=== PATIENT | male | born 1960 | race Caucasian/White ===

== ENCOUNTER → 2020-09-01 08:49 | Outpatient (BNVA) | payer OTHER, SELFPAY | PROVIDERS: PCP Internal Medicine; Visit Provider Physician Assistant | DX: Z76.89 Persons encountering health services in other specified circumstances (principal) ==

== ENCOUNTER 2020-10-25 09:51 | Day surgery (SDC) | payer OTHER, SELFPAY ==
[2020-10-19 12:23] VITALS: BMI 30.7
--- NOTE | 2020-10-22 10:07 | P.CONAN_ITS ---
Documented by User: Irma Jimenez 10/22/20 10:08 HPI - Anesthesia Eval Consult details Narrative: 59yo M for Colonoscopy PMFSH Active Problems Active Problems: All Active Problems (Updated 10/19/20 @ 12:23 by Irene Traylor) Encounter for screening colonoscopy (Acute) Dyslipidemia (Acute) Past Medical History Medical History Back pain Dyslipidemia No significant medical problems Family History Family History Mother Blocked artery Father Stroke Heart attack Surgical History Surgical History History of colonoscopy Hx of arthroscopy of left knee Social History Social History Are you a primary critical care physician assistant to a significant other at home: No Do you presently have visiting nurse or other home services: No Alcohol intake: current Alcohol intake frequency: 0-2 drinks per day Alcohol type: wine Smoking Status: Former smoker Smoking Quit Date: 2013 Use of substances other than those prescribed or required for medical reasons: No Have you been hit, kicked, punched, or otherwise hurt by someone within the past year? If so, by whom?: No Advance Directives: No Advance Directives Information Provided: No Advance Directives on File: No Recently lost weight without trying: No Meds Allergies Allergy/AdvReac Type Severity Reaction Status Date / Time No Known Allergies Allergy Verified 10/19/20 12:18 Home Medications Medication Instructions Recorded Confirmed Last Taken Type aspirin 81 mg tablet,delayed 81 mg PO DAILY 09/01/20 10/19/20 Unknown History release atorvastatin 40 mg tablet 40 mg PO DAILY 09/01/20 10/19/20 Unknown History omega-3 fatty acids 1,000 mg 1,000 mg PO DAILY 09/01/20 10/19/20 Unknown History capsule cholecalciferol (vitamin D3) 50 mcg PO DAILY 10/19/20 10/19/20 Unknown History [Vitamin D3] ergocalciferol (vitamin D2) 1 cap PO QWEEK 10/19/20 10/19/20 Unknown History tridlmxe-tgh-mnzai-vit K-lycop 1 tab PO DAILY 10/19/20 10/19/20 Unknown History [Men's Multivitamin] Exam Exam Date and Time: October 22, 2020 1007 Height,Weight and Vital Signs: Height 5 ft 11 in Weight 99.79 kg Assessment and Plan Assessment Anesthesia Assessment: Chart Reviewed Documented by User: Rosalie Flores 10/25/20 10:57 [facility] Past Medical History Medical History Back pain Dyslipidemia No significant medical problems Family History Family History Mother Blocked artery Father Stroke Heart attack Surgical History Surgical History History of colonoscopy Hx of arthroscopy of left knee Social History Social History Are you a primary critical care physician assistant to a significant other at home: No Do you presently have visiting nurse or other home services: No Alcohol intake: current Alcohol intake frequency: 0-2 drinks per day Alcohol type: wine Smoking Status: Former smoker Smoking Quit Date: 2013 Use of substances other than those prescribed or required for medical reasons: No Have you been hit, kicked, punched, or otherwise hurt by someone within the past year? If so, by whom?: No Advance Directives: No Advance Directives Information Provided: No Advance Directives on File: No Recently lost weight without trying: No Meds Allergies Allergy/AdvReac Type Severity Reaction Status Date / Time No Known Allergies Allergy Verified 10/19/20 12:18 Home Medications Medication Instructions Recorded Confirmed Last Taken Type aspirin 81 mg tablet,delayed 81 mg PO DAILY 09/01/20 10/19/20 Unknown History release atorvastatin 40 mg tablet 40 mg PO DAILY 09/01/20 10/19/20 Unknown History omega-3 fatty acids 1,000 mg 1,000 mg PO DAILY 09/01/20 10/19/20 Unknown History capsule cholecalciferol (vitamin D3) 50 mcg PO DAILY 10/19/20 10/19/20 Unknown History [Vitamin D3] ergocalciferol (vitamin D2) 1 cap PO QWEEK 10/19/20 10/19/20 Unknown History xjelucln-ixd-vuuzu-vit K-lycop 1 tab PO DAILY 10/19/20 10/19/20 Unknown History [Men's Multivitamin] Exam Airway Mallampati Class: II TM Dist: >3cm Neck ROM: Full Assessment and Plan Assessment Anesthesia Assessment: Anesthesia Plan Discussed and Chart Reviewed Final Anesthetic Review NPO: Yes ASA Class: II Final Preanesthetic Review: No Changes in Pt Med Stat, Meds/Allgs Chart Reviewed, Consent Obtained/Reviewed and Anes Risks/Benef Reviewed Patient Risk: Low Procedure Risk: Low Assessment/Block/Sedation in SS: Assess/Block/Sedation-SS Anesthetic Plan Anesthetic Plan: MAC: Disposition: Standard PACU
[2020-10-25 10:45] VITALS: BP 139/90; PULSE 79; RESP 16; TEMP 36.7; O2SAT 98
[2020-10-25] MEDS: Lactated Ringers 1,000 ML 100 ML IVCONT (11:04)
--- NOTE | 2020-10-25 11:22 | W.PM.OPN ---
Operative Note Operative Note Date of Service: 10/25/20 Narrative: Pre-op diagnosis: Colon cancer screening, history of colon polyps Post-op diagnosis: other (Colon polyp, diverticulosis, hemorrhoids) Procedure: COLONOSCOPY TILL CECUM WITH BIOPSIES Consent: Indications for the procedure and potential complications of bleeding, perforation, reaction to medications and missed diagnosis were discussed with the patient and informed consent was obtained. Instrument: Olympus PCF H 190 L variable stiffness pediatric colonoscope Monitoring: Vital signs and clinical assessment, intermittent blood pressure monitoring, continuous EKG monitoring, Pulse oximetry and Carbon Dioxide monitoring were done throughout the procedure. Colon withdrawl time was 18 minutes. Procedure: The patient was placed in the left lateral decubitis position and pre-procedure medications were administered. After a digital rectal examination of the ano-rectum, the video colonoscope was inserted into the rectum and advanced through the colon to the cecum. The colonoscope was slowly withdrawn in a retrograde panoramic fashion and the colon mucosa was carefully examined including a retroflexed view of the rectum. Findings and interventions are described below. Procedure Difficulty: LLQ pressure was applied to intubate the cecum Findings: Terminal Ileum: Not evaluated Cecum: Normal Ascending Colon: Normal Transverse Colon: A 3-4 mm diminutive appearing polyp removed with the cold biopsy Descending Colon: Normal Sigmoid Colon: Moderate diverticulosis Rectum: Normal Ano-rectum: Moderate internal hemorrhoids Colon preparation: Good after some irrigation Impression and Post Procedure Diagnosis: Colonoscopy Findings: One diminutive appearing polyp removed Moderate diverticulosis seen in the sigmoid colon Moderate hemorrhoids on retroflexed exam. Plan: Await pathology results Patient will get a letter with with biopsy results. Repeat Colonoscopy interval based on path results - in 5 years if polyps are adenomatous and 10 years if polyps are hyperplastic. Above findings were reviewed with the patient and colon polyps and diverticulosis handouts were given in the discharge area Surgeon: Angélica Blancas MD Anesthesia: MAC (Eden Pierson CRNA) Estimated blood loss (mL): 0 Pathology: other (A. TC polyp x 1) Condition: stable Disposition: PACU
--- NOTE | 2020-10-25 11:22 | MHC.SHP ---
Pre-Procedural Eval Section A The patient is an INPATIENT: No The History & Physical has been completed within 30 days and I have reviewed it.: No Section B Chief Complaint: screening Details of Present Illness: A 59-year-old male referred for screening colonoscopy. Had a colonoscopy 49, with two adenomas polyps. He had a last colonoscopy 5 years ago at that time had no polyps. No family history of colon cancer. He has no GI complaints. He has a good appetite he. He has a normal bowel pattern. Relevant Family History (Specify if Yes): No Relevant Social History: Tobacco Use (past smoker) Present Medications: see Short Stay Collaborative assessment Medical History: Significant History (Hyperlipidemia) History of Previous Operations: Relevant previous surgery/procedure and date(s) (History of Colonoscopy) Allergies: Allergies Allergy/AdvReac Type Severity Reaction Status Date / Time No Known Allergies Allergy Verified 10/19/20 12:18 Review of Systems Sugical H&P ROS: Negative: Constitution, Cardiovascular, Respiratory and Gastrointestinal Exam Surgical H&P Exam: Normal: Heart, Normal: Lungs, Normal: Extremities and Normal: Abdomen Plan Diagnosis/Plan: Unchanged I have reviewed the history and physical and performed a pertinent physical examination on my patient. No changes have occurred unless specified.
[2020-10-25 12:04] VITALS: BP 99/59; PULSE 88; RESP 16; TEMP 36.3; O2SAT 99
[2020-10-25 12:19] VITALS: BP 104/68; PULSE 78; RESP 16; O2SAT 94
[2020-10-25 12:34] VITALS: BP 113/71; PULSE 73; RESP 18; O2SAT 96
== END 2020-10-25 13:04 | disposition home or self-care (01) ==
PROVIDERS: PCP Internal Medicine; Visit Provider Internal Medicine Gastroenterology
PROC: 0DJD8ZZ Inspection of Lower Intestinal Tract, Via Natural or Artificial Opening Endoscopic (ICD-10-PCS; CPT 45378; principal; 2020-10-25 10:50)
DX: Z12.11 Encounter for screening for malignant neoplasm of colon (principal); Z86.010 Personal history of colon polyps; K63.5 Polyp of colon; K57.30 Diverticulosis of large intestine without perforation or abscess without bleeding; K64.8 Other hemorrhoids; Z79.899 Other long term (current) drug therapy; Z79.82 Long term (current) use of aspirin; Z87.891 Personal history of nicotine dependence
CPT/HCPCS: 45380; 88305

== ENCOUNTER → 2020-12-29 13:40 | Outpatient (BNVA) | payer MEDICAID, SELFPAY | PROVIDERS: PCP Internal Medicine; Referring Provider Internal Medicine; Visit Provider Surgery | DX: D17.79 Benign lipomatous neoplasm of other sites (principal) | CPT/HCPCS: 99202 ==

== ENCOUNTER 2021-02-01 05:57 | Day surgery (SDC) | payer MEDICAID, SELFPAY ==
[2021-01-25 11:46] VITALS: BMI 32.2
--- NOTE | 2021-01-31 11:05 | HO.ANESPROP2 ---
Documented by User: Irma Barbara 01/31/21 11:06 HPI - Anesthesia Eval Consult details Narrative: 60yo M for Right Excision of Medial Thigh Lipoma +ETOH daily PMFSH Active Problems Active Problems: All Active Problems (Updated 01/25/21 @ 11:45 by Savita Ty) Encounter for screening colonoscopy (Acute) Lipoma of extremity (Acute) Dyslipidemia (Acute) Past Medical History Medical History Back pain Dyslipidemia Lipoma of extremity Family History Family History Mother Blocked artery Father Stroke Heart attack Surgical History Surgical History History of colonoscopy Hx of arthroscopy of left knee Social History Social History Household Members Other:: alone Are you a primary critical care transport nurse to a significant other at home: No Do you presently have visiting nurse or other home services: No Alcohol intake: current Alcohol intake frequency: 0-2 drinks per day Alcohol type: wine Patient Tobacco Use Status: Former Tobacco user Quit Date: 2013 Tobacco use type: Cigarette Use of substances other than those prescribed or required for medical reasons: No Have you been hit, kicked, punched, or otherwise hurt by someone within the past year? If so, by whom?: No Are you DNR?: No Advance Directives: No Advance Directives Information Provided: No Advance Directives on File: No Recently lost weight without trying: No Eating poorly because of decreased appetite: No Nutrition Risks: No Nutritional Risk Poor oral hygiene: No Meds Allergies Allergy/AdvReac Type Severity Reaction Status Date / Time No Known Allergies Allergy Verified 12/29/20 13:45 Home Medications Medication Instructions Recorded Confirmed Last Taken Type aspirin 81 mg tablet,delayed 81 mg PO DAILY 09/01/20 02/01/21 01/31/21 History release atorvastatin 40 mg tablet 40 mg PO DAILY 09/01/20 01/25/21 Unknown History omega-3 fatty acids 1,000 mg 1,000 mg PO DAILY 09/01/20 01/25/21 Unknown History capsule Men's Multivitamin 1 tab PO DAILY 10/19/20 01/25/21 Unknown History cholecalciferol (vitamin D3) 50 mcg PO DAILY 10/19/20 01/25/21 Unknown History [Vitamin D3] ergocalciferol (vitamin D2) 1 cap PO QWEEK 10/19/20 01/25/21 Unknown History Exam Exam Date and Time: January 31, 2021 1105 Height,Weight and Vital Signs: Height 5 ft 11 in Weight 104.8 kg Assessment and Plan Assessment Anesthesia Assessment: Chart Reviewed Documented by User: Rosalie Flores 02/01/21 07:49 [facility] Past Medical History Medical History Back pain Dyslipidemia Lipoma of extremity Family History Family History Mother Blocked artery Father Stroke Heart attack Surgical History Surgical History History of colonoscopy Hx of arthroscopy of left knee Social History Social History Household Members Other:: alone Are you a primary critical care transport nurse to a significant other at home: No Do you presently have visiting nurse or other home services: No Alcohol intake: current Alcohol intake frequency: 0-2 drinks per day Alcohol type: wine Patient Tobacco Use Status: Former Tobacco user Quit Date: 2013 Tobacco use type: Cigarette Use of substances other than those prescribed or required for medical reasons: No Have you been hit, kicked, punched, or otherwise hurt by someone within the past year? If so, by whom?: No Are you DNR?: No Advance Directives: No Advance Directives Information Provided: No Advance Directives on File: No Recently lost weight without trying: No Eating poorly because of decreased appetite: No Nutrition Risks: No Nutritional Risk Poor oral hygiene: No Meds Allergies Allergy/AdvReac Type Severity Reaction Status Date / Time No Known Allergies Allergy Verified 12/29/20 13:45 Home Medications Medication Instructions Recorded Confirmed Last Taken Type aspirin 81 mg tablet,delayed 81 mg PO DAILY 09/01/20 02/01/21 01/31/21 History release atorvastatin 40 mg tablet 40 mg PO DAILY 09/01/20 01/25/21 Unknown History omega-3 fatty acids 1,000 mg 1,000 mg PO DAILY 09/01/20 01/25/21 Unknown History capsule Men's Multivitamin 1 tab PO DAILY 10/19/20 01/25/21 Unknown History cholecalciferol (vitamin D3) 50 mcg PO DAILY 10/19/20 01/25/21 Unknown History [Vitamin D3] ergocalciferol (vitamin D2) 1 cap PO QWEEK 10/19/20 01/25/21 Unknown History Exam Airway Mallampati Class: II TM Dist: >3cm Neck ROM: Full Assessment and Plan Assessment Anesthesia Assessment: Anesthesia Plan Discussed and Chart Reviewed Final Anesthetic Review NPO: Yes ASA Class: II Final Preanesthetic Review: No Changes in Pt Med Stat, Meds/Allgs Chart Reviewed, Consent Obtained/Reviewed and Anes Risks/Benef Reviewed Patient Risk: Low Procedure Risk: Low Assessment/Block/Sedation in SS: Assess/Block/Sedation-SS Anesthetic Plan Anesthetic Plan: MAC: Disposition: Standard PACU
[2021-02-01 06:05] VITALS: BP 143/98; PULSE 90; RESP 18; TEMP 36.6; O2SAT 98
[2021-02-01] MEDS: Lactated Ringers 1,000 ML 100 ML IVCONT (06:34)
--- NOTE | 2021-02-01 06:45 | PC.NURSE ---
pt shaved half area small kirstie noted to near site surgeron aware
--- NOTE | 2021-02-01 07:14 | MHC.SHP ---
Pre-Procedural Eval Section A Date of Service: 02/01/21 Section B Chief Complaint: Lipoma of extremity Details of Present Illness: has lipomatous mass on right medial thigh with increase in size Relevant Family History (Specify if Yes): No Relevant Social History: None Present Medications: see Short Stay Collaborative assessment Medical History: Significant History (back pain, dyslipidemia) History of Previous Operations: No relevant previous surgery Allergies: Allergies Allergy/AdvReac Type Severity Reaction Status Date / Time No Known Allergies Allergy Verified 12/29/20 13:45 Review of Systems Sugical H&P ROS: Negative: Constitution, Cardiovascular, Respiratory, Neurological, Psychiatric, Hem-Onc, Allergic/Immunologic, Gastrointestinal, Genitourinary, Musculoskeletal, Integumentary, Endocrine and Eyes/Ears/Nose/Throat Exam Surgical H&P Exam: Normal: HEENT, Normal: Heart, Normal: Lungs, Normal: Abdomen, Normal: Skin and Normal: Neurological and Significant Findings: Extremities (lipoma about 5 cm, right medial thigh) Plan Diagnosis/Plan: Unchanged I have reviewed the history and physical and performed a pertinent physical examination on my patient. No changes have occurred unless specified.
--- NOTE | 2021-02-01 07:17 | PM.OP ---
Brief Operative Note Date of Service: 02/01/21 Pre-op diagnosis: lipoma right medial thigh Post-op diagnosis: same Procedure: exc of lipoma right medial thigh Surgeon: Ko Scherer MD Anesthesia: MAC Was an Manager Medical Writing used for this Procedure?: No Estimated blood loss (mL): 2 Pathology: other ( lipoma) Condition: stable Disposition: PACU
--- NOTE | 2021-02-01 08:03 | W.PM.OPN ---
Operative Note Operative Note Date of Service: 02/01/21 Narrative: Preop diagnosis: Lipoma, right medial thigh Postop diagnosis: Lipoma, right medial thigh Procedure: Excision of lipoma, right medial thigh under anesthesia Surgeon: Ko Scherer MD The patient is a 60-year-old male with a lipomatous mass measuring about 5 cm across on the right medial thigh. In view of increasing size, he wanted this removed. He understood the technique of excision under anesthesia. He was aware of the risks, benefits, and alternatives He was brought to the operating room placed supine on the table under monitored anesthesia care. He was placed in frogleg position. The area of the lipoma right medial thigh was prepped and draped in the usual sterile fashion. A surgicaltime-out was done. The patient received cefazolin 2 g IV preoperatively . I infiltrated the planned line of incision with lidocaine 1%. I made an incision on the skin using a blade 15. And this was carried down through the full-thickness of the skin and subcutaneous fat with electrocautery. We proceeded to continue to dissect through the subcutaneous layer until was able to visualize the lipoma. I sharply dissected the left palm off of the rest of the subcutaneous layer all the way posteriorly using electrocautery as well as Metzenbaum scissors. We dissected the lipoma completely until were able to deliver this. This measured about 5 x 5 cm in size. I cauterized some areas of oozing. Once hemostasis was ensured, I proceeded to then irrigate. I closed the incision with full-thickness nylon 3 0 simple interrupted sutures as well as vertical mattress sutures. dressings were applied The patient tolerated the procedure well. There were no complications noted. Initial and final counts of sponges and instruments were correct. Estimated blood loss was about 2 cc. The patient was then transferred to the recovery room with stable vital signs.
[2021-02-01 08:08] VITALS: BP 114/69; PULSE 91; RESP 16; TEMP 36.1; O2SAT 97
[2021-02-01 08:23] VITALS: BP 145/93; PULSE 72; RESP 17; TEMP 36.1; O2SAT 98
== END 2021-02-01 09:07 | disposition home or self-care (01) ==
PROVIDERS: PCP Internal Medicine; Visit Provider Surgery
PROC: (CPT 27337; principal; 2021-02-01 07:30)
DX: D17.23 Benign lipomatous neoplasm of skin and subcutaneous tissue of right leg (principal); E78.5 Hyperlipidemia, unspecified; Z87.891 Personal history of nicotine dependence; Z79.82 Long term (current) use of aspirin; Z79.899 Other long term (current) drug therapy
CPT/HCPCS: 27337; 88304; J0690; J2250; J2405; J3010

== ENCOUNTER → 2021-02-14 14:05 | Outpatient (BNVA) | payer MEDICAID, SELFPAY | PROVIDERS: PCP Internal Medicine; Referring Provider Internal Medicine; Visit Provider Surgery | DX: D17.79 Benign lipomatous neoplasm of other sites (principal); Z48.02 Encounter for removal of sutures | CPT/HCPCS: 99212 ==

== ENCOUNTER → 2022-04-26 12:45 | Outpatient (BNVA) | payer MEDICAID, SELFPAY | PROVIDERS: PCP Internal Medicine; Referring Provider Internal Medicine; Visit Provider Surgery | DX: L98.9 Disorder of the skin and subcutaneous tissue, unspecified (principal) | CPT/HCPCS: 99212 ==

== ENCOUNTER 2022-05-10 14:02 | Outpatient (REF) | payer MEDICAID, SELFPAY | END 2022-05-10 14:03 | disposition home or self-care (01) | LOC: HO.LNP 14:02 | PROVIDERS: PCP Internal Medicine; Visit Provider Surgery | DX: L98.9 Disorder of the skin and subcutaneous tissue, unspecified (principal) | CPT/HCPCS: 11400; 11401; 88304; 88305 ==

== ENCOUNTER 2023-02-19 09:44 | Outpatient (REF) | payer MEDICAID, SELFPAY ==
[2023-02-19 12:26] LABS: Anion Gap 11 (12-20); Blood Urea Nitrogen 10 mg/dL (9-16); Calcium 9.5 mg/dL (8.4-10.2); Carbon Dioxide 28 mmol/L (22-29); Chloride 104 mmol/L (96-108); Cholesterol 197 mg/dL; Estimated Glomerular Filt Rate > 60; Glucose Random 93 mg/dL (60-115); HDL Cholesterol 55 mg/dL; LDL Cholesterol Calculated 97 mg/dl; Potassium 4.4 mmol/L (3.3-5.1); Sodium 139 mmol/L (135-145); Triglycerides 229 mg/dL
== END 2023-02-19 09:45 | disposition home or self-care (01) ==
LOC: HO.HHCL 09:44
PROVIDERS: Visit Provider Internal Medicine
DX: R03.0 Elevated blood-pressure reading, without diagnosis of hypertension (principal)
CPT/HCPCS: 36415; 80048; 80061

== ENCOUNTER 2023-11-12 11:00 | Outpatient (RCR) | payer OTHER, SELFPAY ==
--- NOTE | 2023-12-18 11:33 | MHC.PT.DC ---
[facility] [place] [facility] [place] [facility] [place] Office [address] [phone] F: [phone] F: [phone] F: [phone] F: [phone] Physical Therapy Discharge Report Diagnosis: PIRIFORMIS SYNDROME, RIGHT Date of Surgery: Date of Evaluation: 10/17/23 Date of Discharge: 12/18/23 Treatments to Date: 9 Cancellations to Date: 0 No Shows to Date: 0 Discharge Status: Improved Function Independent with HEP Patient Elected to Stop Discharge Summary: THE Pt WAS CHALLENGED W EXER ACTIVATING HIP ABD/ GLUTES, HE HAS VERY TIGHT AND OVERUSED RADHA HIP FLEXORS.. ?? SOME HIP Jt IRRIT INFLUENCING MOB- THE Pt'S LBP HAS RESOLVED AND SXS ARE PRIMARILY ORIGINATING FROM HIS HIP; HE MET HIS GOALS TO MAX POTENTIAL AND HAS LEFT FOR [place]. Electronically signed by: LILLIANA MCMILLAN,PT Please sign and return to therapist. Thank you for your referral.
== END 2023-12-18 11:41 | disposition home or self-care (01) ==
LOC: HO.PT 11:00
PROVIDERS: PCP Internal Medicine; Visit Provider Internal Medicine
DX: G57.01 Lesion of sciatic nerve, right lower limb (principal)
CPT/HCPCS: 97110; 97112; 97140; 97162; 97535

== ENCOUNTER 2024-03-10 10:02 | Outpatient (REF) | payer OTHER, SELFPAY ==
[2024-03-10 12:10] LABS: Anion Gap 10 (12-20); Blood Urea Nitrogen 13 mg/dL (9-16); Carbon Dioxide 26 mmol/L (22-29); Chloride 107 mmol/L (96-108); Cholesterol 183 mg/dL (<200); Estimated Glomerular Filt Rate > 60; Glucose Random 104 mg/dL (60-115); HDL Cholesterol 55 mg/dL (>40); LDL Cholesterol Calculated 95 mg/dL (<100); Sodium 139 mmol/L (135-145); Triglycerides 165 mg/dL (<150)
[2024-03-10 12:15] LABS: Vitamin D 25-OH Total 43.5 ng/mL (>30)
[2024-03-10 12:31] LABS: Reflex LDLD? No
== END 2024-03-10 10:03 | disposition home or self-care (01) ==
LOC: HO.HHCL 10:02
PROVIDERS: Visit Provider Internal Medicine
DX: I10 Essential (primary) hypertension (principal); E78.2 Mixed hyperlipidemia; G57.01 Lesion of sciatic nerve, right lower limb
CPT/HCPCS: 36415; 80048; 80061; 82306

== ENCOUNTER 2024-04-24 09:56 | Outpatient (AMB) | payer OTHER, SELFPAY ==
--- NOTE | 2024-04-24 09:58 | A.OFFVIS_ITS ---
Vital Signs 04/24/24 10:02 Height 5 ft 11 in Weight 218 lb 4.122 oz BMI 30.4 BP 154/83 H Blood Pressure Location Rt brachial Position Sitting Pulse 83 Pulse Source Pulse Oximeter Pulse Oximetry (%) 98 Oxygen Delivery Method Room Air Intake Visit Reasons: Chronic bilateral low back pain Intake Note: Pain today 2/10 sitting walking 8/10 Technology Architect Required: No Accompanied by: Self / Same As Patient Allergies No Known Allergies Allergy (Verified 04/24/24 10:00) HPI HPI Chronic bilateral low back pain: Details: Patient is a pleasant 63 years old male with past history of osteoarthritis, chronic low back pain, right inguinal hernia, obesity, right piriformis pain, right shoulder pain, history of left plantar fasciitis, osteopenia, presents today for initial evaluation of low back pain and right shoulder pain. Denies any recent or past trauma, injury or falls. Back pain is axial and also radiates to the right buttock and right lateral hip and right groin with localized tenderness to the right sacroiliac joint. Patient reports he wants to avoid surgery for umbilical and right inguinal hernia at this time. 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 Back pain and shoulder pain has been resistant to conservative treatments and affecting his daily activities and functioning, mobility, sleep and social interactions. Denies previous surgery or injections to his current pain generators. Pain is most severe in the mornings, rated at 8/10 and least severe at noon which he rates at 2/10. Denies any fever or chills, abdominal pain, weakness, footdrop, bladder or bowel dysfunction or saddle anesthesia. Location: Lower back, right hip/groin, right shoulder Duration: Right shoulder-6 months, Back/groin pain-1 year Characteristics of symptom or complaint: Aching, stiffness, numbness, shooting, spasming, sharp, radiating Aggravating or associated factors: Climbing, walking, bending, turning to the right, overhead reaches, lifting Relieving factors: Stretching, Tylenol, NSAIDs (Advil, Ibuprofen), Voltaren gel, Biofreeze Treatment: PT 10/24/23-12/18/23, acupunture, massage, inversion table [facility] Medical History Osteoarthritis Hypertension Vitamin D deficiency Benign skin lesion of multiple sites Lipoma of extremity Back pain Dyslipidemia Surgical History History of excision of lesion (~05/10/22) Status post excision of lipoma Hx of arthroscopy of left knee History of colonoscopy Family History Mother Blocked artery Father Stroke Heart attack Social History Household Members Other:: alone Are you a primary healthcare advisory services manager to a significant other at home: No Do you presently have visiting nurse or other home services: No Alcohol intake: current Alcohol intake frequency: 0-2 drinks per day Alcohol type: beer, wine and other Patient Tobacco Use Status: Former Tobacco user Tobacco use type: Cigarette Use of substances other than those prescribed or required for medical reasons: No Review of Systems Const All systems reviewed & are unremarkable except as noted in HPI and below Physical Exam Vital Signs: Last Vital Signs Pulse 83 04/24/24 10:02 BP 154/83 H 04/24/24 10:02 Pulse Ox 98 04/24/24 10:02 Oxygen Delivery Method Room Air 04/24/24 10:02 BMI result Body Mass Index 30.4 General: Appears afebrile. Alert and oriented. Mood and affect appropriate. Follows and participates in conversation appropriately. Respiratory effort is unlabored. No cough. Able to transition from sit to stand unassisted. Ambulates with bilaterally normal heel strike and toe off. GI Inspection: Yes normal to inspection and Yes obesity Palpation (GI): Soft to palpation and Tenderness to palpation present (GI) in the RLQ (right groin) General: Yes no CVA tenderness Back/Spine/Pelvis Other: Limited lumbar ROM due to pain. Mildly antalgic gait with slight limping on the right. Lumbar flexion and bending reproduces moderate symptoms, mild pain with lumbar extension. Demonstrates 5/5 left and 4/5 right strength of quadriceps bilaterally as well as flexion/dorsiflexion of bilateral feet against resistance. 2+ pedal pulses bilaterally. Straight leg rise with dorsiflexion negative bilaterally. Diminished patellar and achilles reflexes bilaterally. Facet loading test positive bilaterally, right>left. Franky sign, Ezequiel?s, Gaenslen, Pelvic compression and Stinchfield tests are positive on the right. Mild groin pain with I/E right hip rotations. Valsalva maneuver negative. Back: no CVA tenderness Cervical Spine: cervical ROM normal, No Cervical spine scars present and No Cervical spine tenderness Thoracic/Lumbar Spine: thoracic and lumbar spine normal to inspection, No Thoracic/lumbar spine scar(s), Lasegue's sign negative, straight leg raise negative bilaterally, pain with thoraco-lumbar ROM, paraspinal muscle tenderness on the right greater than left, thoraco-lumbar ROM limited, No thoracic spinal tenderness and lumbar spinal tenderness at L4 and at L5 Pelvis: buttock tenderness on the right and no sciatic notch tenderness Sacroiliac joints: on the right tender to palpation and on the left nontender Extrem General: Yes capillary refill normal, Yes no clubbing, cyanosis or edema and Yes no calf tenderness Right upper extremity: shoulder/upper arm (Limited ROM with I/E rotations due to pain) Details: normal to inspection and tenderness Location: of the A-C joint and over the subacromial bursa Results Reviewed Results Reviewed: No imaging results are available for review. Assessment & Plan Assessment & Plan (1) Chronic low back pain: Code(s): M54.50 - Low back pain, unspecified; G89.29 - Other chronic pain Category: Medical (2) Lumbosacral spondylosis: Code(s): M47.817 - Spondylosis without myelopathy or radiculopathy, lumbosacral region Category: Medical (3) Right hip pain: Code(s): M25.551 - Pain in right hip Category: Medical (4) Right shoulder pain: Code(s): M25.511 - Pain in right shoulder Category: Medical Plan Lumbar spine, hip and right shoulder imaging to assess degree of degenerative changes, any subluxation, listhesis, compression fractures or pars defects. Discussed interventional treatments for current pain generators including diagnostic versus therapeutic injections neuromodulation and RFA procedures. Continue daily physical activity, good posture, adequate hydration, weight optimization, and activity modifications. All questions and concerns have been answered and patient agreed with the treatment plan. Patient will return to the clinic to discuss results of the xray findings when it is done and consider interventional therapy as indicated. Orders: Orders 2 XR shoulder RT min 2V Today M25.511 - Pain in right shoulder XR lumbar spine 4V min Today G89.29 - Other chronic pain, M47.817 - Spondylosis without myelopathy or radiculopathy, lumbosacral region, M54.50 - Low back pain, unspecified XR hip RT w PEL1V Today M25.551 - Pain in right hip Coding Level of Care Code New Pt Level 4 (80234) Complex EM visit Add On G2211 Diagnoses Chronic low back pain M54.50; G89.29 Lumbosacral spondylosis M47.817 Right hip pain M25.551 Right shoulder pain M25.511
[2024-04-24 10:02] VITALS: BP 154/83; PULSE 83; O2SAT 98; BMI 30.4
== END 2024-04-24 10:29 | disposition home or self-care (01) ==
PROVIDERS: PCP Internal Medicine; Visit Provider Nurse Practitioner Family
DX: M54.50 Low back pain, unspecified (principal); G89.29 Other chronic pain; M47.817 Spondylosis without myelopathy or radiculopathy, lumbosacral region; M25.551 Pain in right hip; M25.511 Pain in right shoulder
CPT/HCPCS: 99204; G2211

== ENCOUNTER 2024-04-24 09:56 | Outpatient (REF) | payer OTHER, SELFPAY ==
--- NOTE | ~2024-04-24 | XR_ITS ---
EXAMINATION: XR LUMBOSACRAL SPINE CLINICAL INFORMATION: M54.50 - Low back pain, unspecified COMPARISON: None available. TECHNIQUE: AP, lateral, lat LS jxn, and both oblique views of the lumbosacral spine. FINDINGS: No fracture, dislocation, or suspicious bone lesion. No compression deformities. Normal bony mineralization. 5 mm degenerative anterolisthesis of L4 on L5. This appears based upon predominantly degenerative facet change. There is a trace degenerative retrolisthesis L3 on L4. Alignment is otherwise anatomic. There is mild to moderate diffuse disc degeneration, most significant at L3-4. There is facet degeneration and sclerosis spanning L4-S1. Oblique views demonstrate no evidence of pars defect. Mild to moderate degenerative arthrosis left greater than right SI joints and bilateral hip joints. No discrete soft tissue abnormalities. XR/XR lumbar spine 4V min IMPRESSION: 1. No acute bony abnormalities. 2. Moderate lumbar spondylosis as discussed. Electronically signed by: Angelito Aguilar MD 07/05/2024 07:45 PM [facility]
--- NOTE | ~2024-04-24 | XR_ITS ---
EXAMINATION: XR SHOULDER, RIGHT CLINICAL INFORMATION: M25.511 - Pain in right shoulder COMPARISON: None available. TECHNIQUE: AP external rotation, Grashey, scapular Y, and axillary views of the right shoulder. FINDINGS: There is normal bony mineralization. No fracture, dislocation, or focal bony abnormality. There are minimal degenerative changes in the glenohumeral joint. There is moderate spurring of predominantly the superior AC joint, with minimal undersurface spurring. The subacromial space is preserved. There is a small amount of calcification of the supraspinatus tendon abutting the cuff insertion on the greater tuberosity. Soft tissues otherwise appear normal. XR/XR shoulder RT min 2V IMPRESSION: 1. No acute bony abnormalities. 2. Mild calcific tendinopathy of the supraspinatus tendon. 3. Mild degenerative changes of the glenohumeral and AC joint. Electronically signed by: Angelito Aguilar MD 07/05/2024 07:34 PM [facility]
--- NOTE | ~2024-04-24 | XR_ITS ---
EXAMINATION: XR HIP, RIGHT CLINICAL INFORMATION: M25.551 - Pain in right hip COMPARISON: None available. TECHNIQUE: Two views of the right hip. FINDINGS: No fracture, dislocation, or suspicious focal bone lesion. At least moderate changes of osteoarthrosis of the right hip joint with subchondral sclerosis and cystic changes in both the femoral head and acetabulum. Moderate to severe joint space loss. Femoral head mildly irregular in contour flattening of the lateral head neck junction. Mild to moderate changes similarly in the left hip joint. Mild to moderate degenerative arthrosis SI joints. No discrete soft tissue abnormalities. XR/XR hip RT w PEL1V IMPRESSION: 1. No acute bony abnormalities identified. 2. At least moderate right and mild to moderate left osteoarthritis of the hip joints. Electronically signed by: Angelito Aguilar MD 07/05/2024 07:38 PM [facility]
== END 2024-04-24 09:57 | disposition home or self-care (01) ==
LOC: HO.XRAY 09:56
PROVIDERS: PCP Internal Medicine; Visit Provider Nurse Practitioner Family
DX: M25.511 Pain in right shoulder (principal); M54.50 Low back pain, unspecified; G89.29 Other chronic pain; M47.817 Spondylosis without myelopathy or radiculopathy, lumbosacral region; M25.551 Pain in right hip
CPT/HCPCS: 72110; 73030; 73502; 99202

== ENCOUNTER → 2024-04-24 10:50 | Outpatient (BNV) | payer OTHER, SELFPAY | PROVIDERS: PCP Internal Medicine; Visit Provider Radiology Diagnostic Radiology | DX: M25.511 Pain in right shoulder (principal); M54.50 Low back pain, unspecified; M25.551 Pain in right hip | CPT/HCPCS: 72110; 73030; 73502 ==

== ENCOUNTER 2024-07-15 13:29 | Outpatient (AMB) | payer OTHER, SELFPAY ==
[2024-07-15 13:30] VITALS: BMI 30.7
--- NOTE | 2024-07-15 13:30 | A.OFFVIS_ITS ---
Vital Signs 07/15/24 13:30 Height 5 ft 11 in Weight 220 lb BMI 30.7 Intake Visit Reasons: xray results Allergies No Known Allergies Allergy (Verified 07/15/24 13:30) HPI Comments Details: Patient presents today via telehealth encounter for follow up to review recent right shoulder, lumbar spine and right hip xray. Patient is currently in [facility] for vacation. He continues to endorse low back pain which extends into his buttocks and lateral hips, right hip pain with radiation into his right groin and thigh and right shoulder pain with activities, lifting or sleeping on right side. Pain is rated at 8/10 with activities and 4-5/10 at rest. Patient is interested to proceed with interventional treatments for right hip and axial low back pain. Denies any recent cough, cold, infection, fever, bladder or bowel dysfunction, saddle anesthesia or other significant changes in medical history since last office visit. PRIOR: Patient is a pleasant 63 years old male with past history of osteoarthritis, chronic low back pain, right inguinal hernia, obesity, right piriformis pain, right shoulder pain, history of left plantar fasciitis, osteopenia, presents today for initial evaluation of low back pain and right shoulder pain. Denies any recent or past trauma, injury or falls. Back pain is axial and also rad iates to the right buttock and right lateral hip and right groin with localized tenderness to the right sacroiliac joint. Patient reports he wants to avoid surgery for umbilical and right inguinal hernia at this time. 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 Back pain and shoulder pain has been resistant to conservative treatments and affecting his daily activities and functioning, mobility, sleep and social interactions. Denies previous surgery or injections to his current pain generators. Pain is most severe in the mornings, rated at 8/10 and least severe at noon which he rates at 2/10. Denies any fever or chills, abdominal pain, weakness, footdrop, bladder or bowel dysfunction or saddle anesthesia. Location: Lower back, right hip/groin, right shoulder Duration: Right shoulder-6 months, Back/groin pain-1 year Characteristics of symptom or complaint: Aching, stiffness, numbness, shooting, spasming, sharp, radiating Aggravating or associated factors: Climbing, walking, bending, turning to the right, overhead reaches, lifting Relieving factors: Stretching, Tylenol, NSAIDs (Advil, Ibuprofen), Voltaren gel, Biofreeze Treatment: PT 10/24/23-12/18/23, acupunture, massage, inversion table PFSH Medical History Osteoarthritis Hypertension Vitamin D deficiency Benign skin lesion of multiple sites Lipoma of extremity Back pain Dyslipidemia Surgical History History of excision of lesion (~05/10/22) Status post excision of lipoma Hx of arthroscopy of left knee History of colonoscopy Family History Mother Blocked artery Father Stroke Heart attack Social History Household Members Other:: alone Are you a primary medication care manager to a significant other at home: No Do you presently have visiting nurse or other home services: No Alcohol intake: current Alcohol intake frequency: 0-2 drinks per day Alcohol type: beer, wine and other Patient Tobacco Use Status: Former Tobacco user Tobacco use type: Cigarette Review of Systems Const All systems reviewed & are unremarkable except as noted in HPI and below ENT Reports Normal hearing present Neuro Reports Normal hearing present and Denies confusion Psych Denies confusion Physical Exam Vital Signs: BMI result Body Mass Index 30.7 Const General: cooperative, alert and awake; No confusion Orientation/consciousness: patient oriented x3 and No confusion Resp Effort & Inspection: able to speak in complete sentences, no audible wheezes and no cough Neuro General: patient oriented x3 and No confusion Cranial nerves: Yes Normal hearing present Cognition (Neuro): normal cognition Psych Mental Status: mental status grossly normal Speech and movement: Clear speech present Affect: normal affect Attitude: cooperative Thought process: Normal thought process present Thought content: Normal thought content present and No Depressive thoughts present Insight: Good insight present (Psych) Judgement: Good judgement present (Psych) Telehealth Telehealth Telehealth Platform: Telephone Location of provider rendering services: practice address Location of patient: address on file Patient Identification confirmed using: Name, : Yes Telehealth method: voice only Patient verbally consented to treatment: Yes Patient verbally consented to billing insurance company: Yes Patient informed of any privacy concerns related to visit: Yes Results Reviewed Results Reviewed: XR SHOULDER, RIGHT 04/24/24 CLINICAL INFORMATION: M25.511 - Pain in right shoulder FINDINGS: There is normal bony mineralization. No fracture, dislocation, or focal bony abnormality. There are minimal degenerative changes in the glenohumeral joint. There is moderate spurring of predominantly the superior AC joint, with minimal undersurface spurring. The subacromial space is preserved. There is a small amount of calcification of the supraspinatus tendon abutting the cuff insertion on the greater tuberosity. Soft tissues otherwise appear normal. IMPRESSION: 1. No acute bony abnormalities. 2. Mild calcific tendinopathy of the supraspinatus tendon. 3. Mild degenerative changes of the glenohumeral and AC joint. XR LUMBOSACRAL SPINE 04/24/24 CLINICAL INFORMATION: M54.50 - Low back pain, unspecified FINDINGS: No fracture, dislocation, or suspicious bone lesion. No compression deformities. Normal bony mineralization. 5 mm degenerative anterolisthesis of L4 on L5. This appears based upon predominantly degenerative facet change. There is a trace degenerative retrolisthesis L3 on L4. Alignment is otherwise anatomic. There is mild to moderate diffuse disc degeneration, most significant at L3-4. There is facet degeneration and sclerosis spanning L4-S1. Oblique views demonstrate no evidence of pars defect. Mild to moderate degenerative arthrosis left greater than right SI joints and bilateral hip joints. No discrete soft tissue abnormalities. IMPRESSION: 1. No acute bony abnormalities. 2. Moderate lumbar spondylosis as discussed. XR HIP, RIGHT 04/24/24 CLINICAL INFORMATION: M25.551 - Pain in right hip FINDINGS: No fracture, dislocation, or suspicious focal bone lesion. At least moderate changes of osteoarthrosis of the right hip joint with subchondral sclerosis and cystic changes in both the femoral head and acetabulum. Moderate to severe joint space loss. Femoral head mildly irregular in contour flattening of the lateral head neck junction. Mild to moderate changes similarly in the left hip joint. Mild to moderate degenerative arthrosis SI joints. No discrete soft tissue abnormalities. IMPRESSION: 1. No acute bony abnormalities identified. 2. At least moderate right and mild to moderate left osteoarthritis of the hip joints. Assessment & Plan Assessment & Plan (1) Chronic low back pain: Code(s): M54.50 - Low back pain, unspecified; G89.29 - Other chronic pain Category: Medical (2) Lumbosacral spondylosis: Code(s): M47.817 - Spondylosis without myelopathy or radiculopathy, lumbosacral region Category: Medical (3) Right hip pain: Code(s): M25.551 - Pain in right hip Category: Medical (4) Right shoulder pain: Code(s): M25.511 - Pain in right shoulder Category: Medical (5) Osteoarthritis of hips, bilateral: Code(s): M16.0 - Bilateral primary osteoarthritis of hip Category: Medical (6) Sacroiliac joint pain: Code(s): M53.3 - Sacrococcygeal disorders, not elsewhere classified Category: Medical (7) Osteoarthritis of right shoulder: Code(s): M19.011 - Primary osteoarthritis, right shoulder Category: Medical Plan Lumbar spine, hip and right shoulder imaging results were discussed with patient today. Reviewed interventional treatments for current pain generators including diagnostic versus therapeutic injections neuromodulation and RFA procedures.Informational pamphlets were mailed to patient. Schedule right hip intra-articular steroid injection with local and fluoroscopy. Expectations, risks and benefits were reviewed. Patient is aware he will be contacted to schedule this procedure. Subsequently plan for Bilateral Diagnostic L3-L4 DR L5 MBB with local and fluoroscopy for axial low back pain. All questions were answered and the patient is in agreement of plan. Follow-up after injections and sooner as needed. I hereby testify that I spent 13 minutes in conversation with this patient as well as with planning and coordinating care for this patient and organizing this note. Coding Level of Care Code Tele Est Pt Level 4 (60533) Complex EM visit Add On G2211 Diagnoses Chronic low back pain M54.50; G89.29 Lumbosacral spondylosis M47.817 Right hip pain M25.551 Right shoulder pain M25.511 Osteoarthritis of hips, bilateral M16.0 Sacroiliac joint pain M53.3 Osteoarthritis of right shoulder M19.011
== END 2024-07-15 13:38 | disposition home or self-care (01) ==
LOC: HO.PMC 13:30
PROVIDERS: PCP Internal Medicine; Visit Provider Nurse Practitioner Family
DX: M54.50 Low back pain, unspecified (principal); G89.29 Other chronic pain; M47.817 Spondylosis without myelopathy or radiculopathy, lumbosacral region; M25.551 Pain in right hip; M25.511 Pain in right shoulder; M16.0 Bilateral primary osteoarthritis of hip; M53.3 Sacrococcygeal disorders, not elsewhere classified; M19.011 Primary osteoarthritis, right shoulder
CPT/HCPCS: 99214; G2211

== ENCOUNTER 2024-07-31 06:25 | Outpatient (REF) | payer OTHER, SELFPAY | END 2024-07-31 06:26 | disposition home or self-care (01) | LOC: CF 06:25 | PROVIDERS: Visit Provider Internal Medicine | DX: M16.0 Bilateral primary osteoarthritis of hip (principal) | CPT/HCPCS: 20611; J2795; J3301 ==

== ENCOUNTER 2024-07-31 09:23 | Outpatient (AMB) | payer OTHER, SELFPAY ==
[2024-07-31 09:26] VITALS: BP 144/84; PULSE 98; O2SAT 99
--- NOTE | 2024-07-31 09:26 | A.OFFVIS_ITS ---
Vital Signs 07/31/24 09:26 07/31/24 09:38 BP 144/84 H 133/71 Blood Pressure Location Lt brachial Lt brachial Position Sitting Sitting Pulse 98 88 Pulse Source Pulse Oximeter Pulse Oximeter Pulse Oximetry (%) 99 98 Oxygen Delivery Method Room Air Room Air Intake Visit Reasons: Right hip inj Allergies No Known Allergies Allergy (Verified 07/15/24 13:30) HPI HPI Right hip inj: Details: Patient presents for scheduled procedure. Denies any recent cough, cold, infection, fever or other significant changes in medical history since last office visit. [facility] Medical History Osteoarthritis Hypertension Vitamin D deficiency Benign skin lesion of multiple sites Lipoma of extremity Back pain Dyslipidemia Surgical History History of excision of lesion (~05/10/22) Status post excision of lipoma Hx of arthroscopy of left knee History of colonoscopy Family History Mother Blocked artery Father Stroke Heart attack Social History Household Members Other:: alone Are you a primary urgent care physician to a significant other at home: No Do you presently have visiting nurse or other home services: No Alcohol intake: current Alcohol intake frequency: 0-2 drinks per day Alcohol type: beer, wine and other Patient Tobacco Use Status: Former Tobacco user Tobacco use type: Cigarette Physical Exam Vital Signs: Last Vital Signs Pulse 88 07/31/24 09:38 BP 133/71 07/31/24 09:38 Pulse Ox 98 07/31/24 09:38 Oxygen Delivery Method Room Air 07/31/24 09:38 Office Procedures AMB Joint Injection/Aspiration Joint Injection/Aspiration Primary Site: other (Right hip) Prep: site was prepped using sterile technique Injected: 40 mg of, Kenalog, with 3 mL of and other (Ropivacaine 0.25%) Approach Used: anterolateral (Ultrasound-guided) Procedure: The patient tolerated the procedure well Coding Details: An image of the ultrasound injection was saved to the patient's record. 15600 - Large joint Procedure code (CPT) selection complete Assessment & Plan Assessment & Plan (1) Osteoarthritis of hips, bilateral: Code(s): M16.0 - Bilateral primary osteoarthritis of hip Category: Medical Plan Patient is status post right ultrasound-guided intra-articular corticosteroid hip injection. Patient tolerated procedure well and was discharged home in stable condition with discharge instructions. All questions were answered. We will follow-up via telephone or in clinic to assess response to therapy. A follow-up appointment was made during today's visit. Coding Level of Care Code Procedure Only Diagnoses Osteoarthritis of hips, bilateral M16.0 CPT Codes Coding - 04403 Large joint: 44201 - Large joint ([id number])
[2024-07-31 09:38] VITALS: BP 133/71; PULSE 88; O2SAT 98
== END 2024-07-31 09:44 | disposition home or self-care (01) ==
PROVIDERS: PCP Internal Medicine; Visit Provider Internal Medicine
DX: M16.0 Bilateral primary osteoarthritis of hip (principal)
CPT/HCPCS: 20611

== ENCOUNTER 2024-08-28 09:14 | Outpatient (AMB) | payer OTHER, SELFPAY ==
--- NOTE | 2024-08-28 09:21 | MHC.OFFVIS ---
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 Henry. Patient reports 80% pain relief in his right lateral hip and thigh since procedure but continues to experience significant pain in right groin especially with getting out of bed or car. Pain is also presents with weight bearing, ROM/flexion and cold weather. SLR testing is negative bilaterally. He does have pain in right sacroiliac joint area but no exacerbation of groin pain with SIJ exam. We will proceed with right hip MRI as next steps. Denies any recent cough, cold, infection, fever, or any significant changes in medical history since last office visit. Past Procedures: 07/31/24: Right intra-articular hip steroid injection with US guidance-80% hip pain relief, still having groin pain PRIOR: Patient presents today via telehealth encounter for follow up to review recent right shoulder, lumbar spine and right hip xray. Patient is currently in [facility] for vacation. He continues to endorse low back pain which extends into his buttocks and lateral hips, right hip pain with radiation into his right groin and thigh and right shoulder pain with activities, lifting or sleeping on right side. Pain is rated at 8/10 with activities and 4-5/10 at rest. Patient is interested to proceed with interventional treatments for right hip and axial low back pain. Denies any recent cough, cold, infection, fever, bladder or bowel dysfunction, saddle anesthesia or other significant changes in medical history since last office visit. PRIOR: Patient is a pleasant 63 years old male with past history of osteoarthritis, chronic low back pain, right inguinal hernia, obesity, right piriformis pain, right shoulder pain, history of left plantar fasciitis, osteopenia, presents today for initial evaluation of low back pain and right shoulder pain. Denies any recent or past trauma, injury or falls. Back pain is axial and also radiates to the right buttock and right lateral hip and right groin with localized tenderness to the right sacroiliac joint. Patient reports he wants to avoid surgery for umbilical and right inguinal hernia at this time. 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 Back pain and shoulder pain has been resistant to conservative treatments and affecting his daily activities and functioning, mobility, sleep and social interactions. Denies previous surgery or injections to his current pain generators. Pain is most severe in the mornings, rated at 8/10 and least severe at noon which he rates at 2/10. Denies any fever or chills, abdominal pain, weakness, footdrop, bladder or bowel dysfunction or saddle anesthesia. Location: Lower back, right hip/groin, right shoulder Duration: Right shoulder-6 months, Back/groin pain-1 year Characteristics of symptom or complaint: Aching, stiffness, numbness, shooting, spasming, sharp, radiating Aggravating or associated factors: Climbing, walking, bending, turning to the right, overhead reaches, lifting Relieving factors: Stretching, Tylenol, NSAIDs (Advil, Ibuprofen), Voltaren gel, Biofreeze Treatment: PT 10/24/23-12/18/23, acupunture, massage, inversion table PFSH Medical History Osteoarthritis Hypertension Vitamin D deficiency Benign skin lesion of multiple sites Lipoma of extremity Back pain Dyslipidemia Surgical History History of excision of lesion (~05/10/22) Status post excision of lipoma Hx of arthroscopy of left knee History of colonoscopy Family History Mother Blocked artery Father Stroke Heart attack Social History Household Members Other:: alone Are you a primary personal care aid to a significant other at home: No Do you presently have visiting nurse or other home services: No Alcohol intake: current Alcohol intake frequency: 0-2 drinks per day Alcohol type: beer, wine and other Patient Tobacco Use Status: Former Tobacco user Tobacco use type: Cigarette Review of Systems Const All systems reviewed & are unremarkable except as noted in HPI and below Physical Exam General: Appears afebrile. Alert and oriented. Mood and affect appropriate. Follows and participates in conversation appropriately. Respiratory effort is unlabored. No cough. Able to transition from sit to stand unassisted. Ambulates with bilaterally normal heel strike and toe off. Back/Spine/Pelvis Other: Limited lumbar ROM due to pain. Mildly antalgic gait with slight limping on the right. Lumbar flexion and bending reproduces mild-moderate symptoms, mild pain with lumbar extension. Demonstrates 5/5 left and 4/5 right strength of quadriceps bilaterally as well as flexion/dorsiflexion of bilateral feet against resistance. 2+ pedal pulses bilaterally. Straight leg rise with dorsiflexion is negative bilaterally. Diminished patellar and achilles reflexes bilaterally. Facet loading test positive bilaterally, right>left. Franky sign, Ezequiel?s, Gaenslen, Pelvic compression and Stinchfield tests are positive on the right. Moderate groin pain with I/E right hip rotations and deep flexion. +FADIR on the right. Valsalva maneuver is negative. Cervical Spine: normal cervical lordosis, cervical ROM normal and No Cervical spine tenderness Thoracic/Lumbar Spine: thoracic and lumbar spine normal to inspection, No Thoracic/lumbar spine scar(s), Lasegue's sign negative, straight leg raise negative bilaterally, pain with thoraco-lumbar ROM, paraspinal muscle tenderness on the right greater than left, thoraco-lumbar ROM limited, No thoracic spinal tenderness and lumbar spinal tenderness at L4 and at L5 Pelvis: buttock tenderness on the right and no sciatic notch tenderness Sacroiliac joints: on the right tender to palpation and on the left nontender Extrem General: Yes capillary refill normal, Yes no clubbing, cyanosis or edema and Yes no calf tenderness Results Reviewed Results Reviewed: XR LUMBOSACRAL SPINE 04/24/24 CLINICAL INFORMATION: M54.50 - Low back pain, unspecified FINDINGS: No fracture, dislocation, or suspicious bone lesion. No compression deformities. Normal bony mineralization. 5 mm degenerative anterolisthesis of L4 on L5. This appears based upon predominantly degenerative facet change. There is a trace degenerative retrolisthesis L3 on L4. Alignment is otherwise anatomic. There is mild to moderate diffuse disc degeneration, most significant at L3-4. There is facet degeneration and sclerosis spanning L4-S1. Oblique views demonstrate no evidence of pars defect. Mild to moderate degenerative arthrosis left greater than right SI joints and bilateral hip joints. No discrete soft tissue abnormalities. IMPRESSION: 1. No acute bony abnormalities. 2. Moderate lumbar spondylosis as discussed. XR HIP, RIGHT 04/24/24 CLINICAL INFORMATION: M25.551 - Pain in right hip FINDINGS: No fracture, dislocation, or suspicious focal bone lesion. At least moderate changes of osteoarthrosis of the right hip joint with subchondral sclerosis and cystic changes in both the femoral head and acetabulum. Moderate to severe joint space loss. Femoral head mildly irregular in contour flattening of the lateral head neck junction. Mild to moderate changes similarly in the left hip joint. Mild to moderate degenerative arthrosis SI joints. No discrete soft tissue abnormalities. IMPRESSION: 1. No acute bony abnormalities identified. 2. At least moderate right and mild to moderate left osteoarthritis of the hip joints. Assessment & Plan Assessment & Plan (1) Right hip pain: Code(s): M25.551 - Pain in right hip Category: Medical (2) Osteoarthritis of hips, bilateral: Code(s): M16.0 - Bilateral primary osteoarthritis of hip Category: Medical (3) Right groin pain: Code(s): R10.31 - Right lower quadrant pain Category: Medical Plan Patient is one month status post right ultrasound-guided intra-articular corticosteroid hip injection with significant pain relief in lateral hip and thigh but continues to experience moderate and occasionally severe right hip pain with ROM, getting out of bed or car, weight bearing and cold weather. We will proceed with right hip MRI to assess labral tear. All questions and concerns have been answered and patient agreed with the treatment plan. Follow up for MRI results and sooner as needed. Orders: Orders MR hip RT w con Today M16.0 - Bilateral primary osteoarthritis of hip, M25.551 - Pain in right hip, R10.31 - Right lower quadrant pain Coding Level of Care Code Est Pt Level 4 (64484) Complex EM visit Add On G2211 Diagnoses Right hip pain M25.551 Osteoarthritis of hips, bilateral M16.0 Right groin pain R10.31
[2024-08-28 09:23] VITALS: BP 152/78; PULSE 82; O2SAT 98; BMI 31.0
== END 2024-08-28 09:32 | disposition home or self-care (01) ==
PROVIDERS: PCP Internal Medicine; Visit Provider Nurse Practitioner Family
DX: M25.551 Pain in right hip (principal); M16.0 Bilateral primary osteoarthritis of hip; R10.31 Right lower quadrant pain
CPT/HCPCS: 99214; G2211

== ENCOUNTER → 2024-08-28 09:16 | Outpatient (BNVA) | payer OTHER, SELFPAY | PROVIDERS: PCP Internal Medicine; Visit Provider Nurse Practitioner Family | DX: M16.0 Bilateral primary osteoarthritis of hip (principal); R10.31 Right lower quadrant pain | CPT/HCPCS: 99212 ==

== ENCOUNTER → 2024-09-22 10:19 | Outpatient (BNV) | payer OTHER, SELFPAY | PROVIDERS: PCP Internal Medicine; Visit Provider Radiology Diagnostic Radiology | DX: M16.11 Unilateral primary osteoarthritis, right hip (principal) | CPT/HCPCS: 73721 ==

== ENCOUNTER 2024-09-22 10:20 | Outpatient (REF) | payer OTHER, SELFPAY ==
--- NOTE | ~2024-09-22 | MR_ITS ---
EXAMINATION: MR HIP WITHOUT CONTRAST, RIGHT CLINICAL INFORMATION: Right hip pain for months. COMPARISON: Correlated to x-ray dated April 24, 2024. TECHNIQUE: MRI of the right hip was obtained using routine sequences on a high-field strength magnet. FINDINGS: There is patchy bone marrow STIR signal within the articular surface of the right acetabulum and to the femoral head. There is marginal osteophyte formation and the superior and inferior aspect of the right acetabulum. There is bone marrow STIR signal abnormality in the anterior: Of the right acetabulum and the posterior superior aspect of the right acetabulum. There is heterogeneous bone marrow STIR signal within the right femoral neck into the intertrochanteric region. No acute cortical disruption within the instability the region of the right femur. There is a small amount of fluid within the right coxofemoral joint. There is joint space narrowing involving the right coxofemoral joint. No signal abnormality within the muscles of the right hip. Nonspecific prominent lymph nodes in the right inguinal region. Normal flow-void signal within the visualized vessels. Heterogeneous nodular enlarged prostate gland. MR/MR hip RT wo con IMPRESSION: Osteoarthrosis, moderate to severe, right coxofemoral joint. Electronically signed by: Richard Hawkins MD 09/23/2024 08:27 AM EST
--- OUTSIDE RECORDS SUMMARY | 2024-09-22 10:25 | XMS_ITS | Encounter Summary ---
Author Organization [employer] Address [address] [place] [address] [address] [place] [address] Care Team Providers Care Quality Review Trainer Name Role Phone Nova Piedra MD Primary Care Provider + Encounter Details Date Type Department Care Team (Latest Contact Info) Description 02/25/2019 Abstract [facility] CONVERSIONS Dental, Provider, DDS Social History Tobacco Use Types Packs/Day Years Used Date Smoking Tobacco: Never Assessed Sex and Gender Information Value Date Recorded Sex Assigned at Male 06/05/2022 10:35 AM EDT Legal Sex Male 10:35 AM EDT Gender Identity Male 06/05/2022 10:35 AM EDT Sexual Orientation Straight 06/05/2022 10 :35 AM EDT documented as of this encounter Plan of Treatment Upcoming Encounters Date Type Department Care Team (Late st Contact Info) Description 09/26/2024 2:00 PM EST Office Visit [facility] ADULT DENTAL [address] [place] [address] Nolberto Ralph 11/25/2024 9:45 AM EDT Office Visit [facility] MEDICINE [address] [place] [address] Nova Piedra MD [address] [place] [address] documented as of this encounter Visit Diagnoses Not on filedocumented in this encounter Care Teams Quality Review Trainer Relationship Specialty Start Date End Date Nova Piedra MD [address] [place] [address] PCP - General Family Medicine 02/05/19 documented as of this encounter
--- OUTSIDE RECORDS SUMMARY | 2024-09-22 10:25 | XMS_ITS | Encounter Summary ---
Author Organization [facility] [employer] Address [address] [place] [address] [address] [address] Care Team Providers Care Truck Rental Manager Name Role Phone Nova Piedra MD Primary Care Provider + Encounter Details Date Type Department Care Team (Latest Contact Info) Description 12/09/2020 Abstract [facility] CONVERSIONS Dental, Provider, DDS Social History [...] Description 09/26/2024 2:00 PM EST Office Visit [facility] CH[facility] ADULT DENTAL [address] [place] [address] Nolberto Ralph 11/25/2024 9:45 AM EDT Office Visit [facility] MEDICINE [address] [place] [address] Nova Piedra MD [address] [place] [address] documented as of this encounter Visit Diagnoses Not on filedocumented in this encounter Care Teams Truck Rental Manager Relationship Specialty Start Date End Date Nova Piedra MD [address] [place] [address] PCP - General Family Medicine 02/05/19 documented as of this encounter
--- OUTSIDE RECORDS SUMMARY | 2024-09-22 10:25 | XMS_ITS | Encounter Summary ---
Author Organization [employer] Address [address] [place] [address] [address] [address] Care Team Providers Care Contact Lens Inspector Name Role Phone Nova Piedra MD Primary Care Provider + Encounter Details Date Type Department Care Team (Late Contact Info) Description 01/18/2023 Abstract [facility] MEDICINE [address] [place] [phone] Nova Piedra MD [address] [place] [phone] Social History Tobacco Use Types Packs/Day Years Used Date Smoking Tobacco: Former Cigarettes 1 45 0 10/23/1968 - 10/23/2013 Passive Smoke Exposure: Never Smokeless Tobacco: Never Alcohol Use Standard Drinks/Week Comments Yes 7 (1 standard drink = 0.6 oz pur e alcohol) Rare Depression Answer Date Recorded Patient Health Questionnaire-2 Score 0 09/21/2022 Sex and Gender Information Value Date Recorded Sex Assigned at Male 06/05/2022 10:35 AM EDT Legal Sex Male 10:35 AM EDT Gender Identity Male 06/05/2022 10:35 AM EDT Sexual Orientation Straight 06/05/2022 10 :35 AM EDT documented as of this encounter Plan of Treatment Upcoming Encounters Date Type Department Care Team (Late Contact Info) Description 09/26/2024 2:00 PM EST Office Visit [facility] ADULT DENTAL [address] [place] [address] Nolberto Ralph 11/25/2024 9:45 AM EDT Office Visit [facility] MEDICINE [address] [place] [phone] Nova Piedra MD [address] [place] [address] documented as of this encounter Procedures Procedure Name Priority Date/Time Associated Diagnosis Comments COLONOSCOPY Routine 10/24/2020 11:34 AM EDT documented in this encounter Results * Colonoscopy (10/24/2020 11:34 AM EDT) Colonoscopy Normal Normal Narrative Keturah Coreas - 10/24/2020 11:34 AM EDT Recommended 5 [place] [facility] [place] Historical [place] [employer] [facility] [place] - Final documented in this encounter Visit Diagnoses Not on filedocumented in this encounter Care Teams Contact Lens Inspector Relationship Specialty Start Date End Date Nova Piedra MD [address] [place] [address] PCP - General Family Medicine 02/05/19 documented as of this encounter
--- OUTSIDE RECORDS SUMMARY | 2024-09-22 10:25 | XMS_ITS | Clinical Summary ---
Author Organization [employer] Address [address] [place] [address] 7t [place] [address] Care Team Providers Care Watch Technician Name Role Phone Nova Anderson MD Primary Care Provider + Allergies No known active allergies Medications acetaminophen (Tylenol 8 Hour) 650 MG ER tablet Take 1 tablet by mouth in the morning and 1 tablet at noon and 1 tablet in the evening. 10/13/19 21 Active aspirin 81 MG chewable tablet Chew 1 tablet at bed time. Active chlorhexidine (Peridex) 0.12 % solution Place 15 mL into mouth between cheek and gum every 12 (twelve) hours. 06/17/20 19 Active Multiple Vitamins-Minerals (Multivitamin) liquid Active omeprazole (PriLOSEC) [address] capsule Take 1 capsule by mouth at bed time. Active rosuvastatin (Crestor) 20 MG tabletIndications:Pure hypercholesterolemia Take 1 tablet (20 mg) by mouth Once per day. 90 tablet 3 08/04/20 24 Active lisinopril 2.5 MG tablet Take 1 tablet (2.5 mg) by mouth Once per day. 90 tablet 3 08/04/20 24 025 Active Active Problems Problem Noted Date Diagnosed Date Right anterior shoulder pain 10/30/2023 Assessment & Plan (03/06/2024 2:14 PM EDT): Not responding to PT in the past. Refer to pain clinic as he's going to be seen for LBP as well. Assessment & Plan (10/30/2023 2:57 PM EDT): - Seems to be chronic (more than a year) We will reevaluate when he comes back from [facility] Umbilical hernia without obstruction and without gangrene 09/17/2023 Assessment & Plan (03/06/2024 2:13 PM EDT): We discussed re rx options including surgical referral. He wants to hold off on surgery at this time. We discussed re warning signs of incarceration, obstruction, he should go to ED or Walk In Center immediately Advised re weight reduction. FU in 1y or earlier prn. Assessment & Plan (02/15/2024 12:04 PM EDT): We discussed re rx options including surgical referral. He wants to hold off on surgery at this time. We discussed re warning signs of incarceration, obstruction, he should go to ED or [facility] immediately Advised re weight reduction. FU in 6mo Pyriformis syndrome, right 09/17/2023 Assessment & Plan (08/04/2024 5:06 PM EST): Improving with steroid injection , didn't fu with PT Advised to do home based stretching exercises Take tylenol prn + recommended acupuncture FU prn Assessment & Plan (02/15/2024 12:07 PM EDT): Refer to PT Take Tylenol prn. Assessment & Plan (10/30/2023 2:58 PM EDT): - Doing better on PT, continue current POC Seasonal allergic rhinitis 02/14/2023 Vitamin D deficiency 02/14/2023 Primary hypertension 02/14/2023 Assessment & Plan (08/04/2024 5:04 PM EST): Controlled. Advised to check BP at home and fu next mo with BP readings. Counseled re low salt diet/increase moderate physical activity. Continue low dose amlodipine Check home BP BIW and prn CP/VILLALOBOS/COLLINS Non smoking patient. Assessment & Plan (02/15/2024 12:02 PM EDT): Borderline controlled. Advised to check BP at home and fu next mo with BP readings. Counseled re low salt diet/increase moderate physical activity. Check home BP BIW and prn CP/VILLALOBOS/COLLINS Non smoking patient. Assessment & Plan (10/30/2023 2:56 PM EDT): - Borderline high. - Start Lisinopril 2.5 mg once daily. Recommended to continue using CPAP Counseled re low salt diet/increase moderate physical activity. Check home BP BIW and prn CP/VILLALOBOS/COLLINS Non smoking patient. F/u with me in 4 months. Assessment & Plan (02/14/2023 9:49 AM EDT): Stage 1, reluctant to start medications Counseled re low salt diet/increase moderate physical activity. Check home BP BIW and prn CP/VILLALOBOS/COLLINS Counseled to use CPAP every night FU in 3 months Ex-smoker 02/14/2023 Assessment & Plan (02/14/2023 9:48 AM EDT): Quit 2013, obtain lung cancer screening results from [facility] Chronic low back pain 02/13/2023 Assessment & Plan (03/06/2024 2:15 PM EDT): Patient had pyriform syndrome sxs recently but most likely has underlying disc disease of spine, not completely improved with PT Advised to come to acupuncture clinic. Advised re weight reduction, routine stretching exercises. Refer to Pain clinic. 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 02/13/2023 Vascular disorder 02/13/2023 Primary osteoarthritis of left knee 02/13/2023 Osteopenia determined by x-ray 02/13/2023 Severe obstructive sleep apnea 10/16/2022 Overview (10/16/2022): ANAMARIA on Sleep study 09/29/22, following / [facility] Sleep Medicine, Auto CPAP 8- 20cm Assessment & Plan (10/30/2023 2:45 PM EDT): Doing well on CPAP, recommedned to use every night to decrease morbidity and mortality and use humidifier Assessment & Plan (02/14/2023 11:42 AM EDT): Doing well on CPAP, recommedned to use every night to decrease morbidity and mortality and use humidifier Hyperlipidemia 09/21/2022 Overview (09/21/2022): per new guidelines, goal at least 30% reduction in LDLLDL goal <130 Assessment & Plan (08/04/2024 5:05 PM EST): LDL is improving. Continue Rosuvastatin 20 mg and recheck lipids in 3 months. We discussed re rx options. She wants to be more strict with life style modifications. Recommended moderate amount of exercise and increased consumption of fruit, vegetables, fish and high fiber foods. We discussed about avoiding consumption of highly saturated fats or trans fats. FU lipids in 12 months Assessment & Plan (08/04/2024 2:44 PM EST): >>ASSESSMENT AND PLAN FOR PURE HYPERCHOLESTEROLEMIA WRITTEN ON 02/14/2023 9:49 AM BY HELADIO LARA On crestor 20mg tolerates well check lipid profile and FU with me in 3 months Assessment & Plan (08/04/2024 2:44 PM EST): >>ASSESSMENT AND PLAN FOR PURE HYPERCHOLESTEROLEMIA WRITTEN ON 02/15/2024 12:06 PM BY NOVA ANDERSON MD Advised to restart Crestor due to hx hyperlipidemia, Fam hx CAD FU lipids and LFTs in 3-4m Assessment & Plan (10/30/2023 2:58 PM EDT): Continue Rosuvastatin 20 mg and recheck lipids in 3 months. LDL goal is 70. We discussed re rx options. She wants to be more strict with life style modifications. Recommended moderate amount of exercise and increased consumption of fruit, vegetables, fish and high fiber foods. We discussed about avoiding consumption of highly saturated fats or trans fats. FU lipids in 4 months Assessment & Plan (09/21/2022 1:54 PM EST): Taking Atorvastatin 20mg only for the past 3 months. Restart atorvastatin 40 mg and recheck lipids in 3 months. We discussed re rx options. She wants to be more strict with life style modifications. Recommended moderate amount of exercise and increased consumption of fruit, vegetables, fish and high fiber foods. We discussed about avoiding consumption of highly saturated fats or trans fats. FU lipids in 6m Obesity 09/21/2022 Polyp of colon 09/21/2022 Habitual snoring 09/21/2022 Assessment & Plan (09/21/2022 1:14 PM EST): See above. Scar irritation 09/21/2022 Assessment & Plan (02/14/2023 9:50 AM EDT): Issue #2 resolved reconsult PRN Assessment & Plan (09/21/2022 1:15 PM EST): On right forearm. Will use Triamciinalone cream x1 month and FU at next appointment. We may decide on biopsy if not healed completely Varicose veins of both lower extremities with pa in 09/21/2022 Assessment & Plan (03/06/2024 2:12 PM EDT): Counseled to lose weight, increase exercise. Prescription for compression stockings. Assessment & Plan (09/21/2022 1:16 PM EST): Counseled to lose weight, increase exercise. Prescription for compression stockings. Resolved Problems Problem Noted Date Diagnosed Date Resolved Date Elevated blood pressure reading 09/21/2022 09/17/2023 Assessment & Plan (09/21/2022 1:53 PM EST): BP is wnl today. Counseled re low salt diet/increase moderate physical activity. Check home BP BIW and prn CP/VILLALOBOS/COLLINS Non smoking patient. Check labs and FU in 2-3 months. Witnessed episode of apnea 09/21/2022 0 02/14/2023 Assessment & Plan (09/21/2022 1:14 PM EST): Will order sleep study Encounters Date Type Department Care Team Description 09/05/2024 Telephone [facility] MEDICINE [address] [place] [phone] Nova Anderson MD November08/15/2024 Telephone [facility] MEDICINE [address] [place] [address] Nova Anderson MD Referral 08/04/2024 2:15 PM EST Office Visit [facility] MEDICINE [address] [place] [address], [place] [address] Nova Anderson MD Primary hypertension (Primary Dx); Mixed hyperlipidemia; Pure hypercholesterolemia; Pyriformis syndrome, right 08/04/2024 Travel 07/29/2024 10:30 AM EST Office Visit [facility] ADULT DENTAL [address] [place] [address] Jamel Chawla DDS 07/29/2024 Telephone [facility] ADULT DENTAL [address] [place] [address], [place] [address] Jamel Chawla DDS emergency dental no insurance 07/24/2024 Patient Outreach [address] [address] Nova Anderson MD Pre-visit Planning ([facility] screening is completed) from Last 3 Months Immunizations Name Administration Dates Next Due Influenza injectable quadriv alent preservative free 05/05/2022,05/05/2021,06/17/2020,2017 Influenza, IIV3, injectable 05/22/2015,1 ,05/18/2013,2010,07/01/2008 Td (adult), unspecified 08/20/2004 Tdap 04/07/2015 Social History Tobacco Use Types Packs/Day Years Used Date Smoking Tobacco: Former Cigarettes 1 45 0 02/13/1979 - 10/23/2013 Passive Smoke Exposure: Past Smokeless Tobacco: Never Tobacco Cessation:Counseling Given: Not Answered Comments:Quit on 2014 Alcohol Use Standard Drinks/Week Comments Yes 14 (1 standard drink = 0.6 oz pu re alcohol) Housing Stability Answer Date Recorded What is your housing situation today? I have jovan elizabeth 10/30/[address] you li ve. Do you have problems with any of the following? None of the above 10/30/2023 Food Insecurity Answer Date Recorded Within the past 12 months, y ou worried that your food would run out before you got money to buy more: Never True 10/30/2023 Within the past 12 months,th e food you bought just didn't last and you didn't have enough money to get more: Never True Transportation Answer Date Recorded In the past 12 months, has l ack of transportation kept you from medical appts, meetings, work or from getting things needed for daily living? No 10/30/2023 Utilities Answer Date Recorded In the past 12 months, has t he electric, gas, oil or water company threatened to shut off services in your home? No 10/30/2023 Depression Answer Date Recorded Patient Health Questionnaire-2 Score 0 10/30/2023 Internet Access Answer Date Recorded Internet Access Q1 Yes 04/07/2024 Internet Access Q2 Not on file 04/07/2024 Sex and Gender Information Value Date Recorded Sex Assigned at Male 06/05/2022 10:35 AM EDT Legal Sex Male 10:35 AM EDT Gender Identity Male 06/05/2022 10:35 AM EDT Sexual Orientation Straight 06/05/2022 10 :35 AM EDT Last Filed Vital Signs Vital Sign Reading Time Taken Comments Blood Pressure 141/79 08/04/2024 2:35 PM EST Pulse 86 08/04/2024 2:35 PM EST Temperature 36.6 ??C (97.8 ??F) 08/04/2024 2:35 PM ES T Respiratory Rate 20 08/04/2024 2:35 PM EST Oxygen Saturation 97% 08/04/2024 2:35 PM EST Inhaled Oxygen Concentration - - Weight 105 kg (232 lb 6 oz) 08/04/2024 2:[address] Height 180.3 cm (5' 11 ) 08/04/2024 2:35 PM EST Body Mass Index 32.41 08/04/2024 2:35 PM EST Plan of Treatment Upcoming Encounters Date Type Department Care Team (Late st Contact Info) Description 09/26/2024 2:00 PM EST Office Visit [facility]C ADULT DENTAL [address] [place] [address] Nolberto Ralph 11/25/2024 9:45 AM EDT Office Visit [facility] MEDICINE [address] [place], [place] [phone] Nova Anderson MD [address] [place] [phone] Health Maintenance Due Date Last Done Comments Anal Pap 1961 CT Colonography 1961 FIT DNA/Cologuard 1961 FIT 1961 FOBT 1961 HIV Screening 1961 Sigmoidoscopy 1961 Alcohol/Substance Use Screening 1973 Hepatitis C Screening 11/14/1979 Hepatitis A Vaccines (1 of 2 - Risk 2-dose series) 1980 Zoster Vaccines (1 of 2) 11/14/2011 Hepatitis B Vaccines (1 of 3 - Risk 3-dose series) 2021 Lung Cancer Screening 03/22/2023 03/22/2022 Dental Oral Exam 09/26/2024 03/25/2024, 03/2024, 10/31/2022 Dental Prophylaxis 09/26/2024 03/25/2024, 0 09/13/2023, 10/31/2022 Depression Screening 10/29/2024 10/30/2023, 10/30/19 SDOH Screening 10/29/2024 10/30/2023 Pneumococcal Vaccine: 50+ Years (2 of 2 - PCV) 11/22/2024 11/23/2023 DTaP/Tdap/Td Vaccines (2 - Td or Tdap) 04/07/2025 04/07/2015, 08/20/2004 Dental X-Ray: Bitewings 07/30/2025 07/29/20 24, 03/25/2024, 10/31/2022 Tobacco Screening 08/04/2025 08/04/2024 Colonoscopy 10/24/2025 10/24/2020 Colorectal Cancer Screening 10/24/2025 Dental X-Ray: Full Mouth 03/26/2027 03/25/2024 Lipid Panel 03/10/2029 03/10/2024, 02/03, 04/07/2022 RSV Patients and Patients Aged 60 years or older (1 - 1-dose 75+ series) 2036 COVID-19 Vaccine Completed 04/13/2024, 11/2021, 02/21/2022, Additional history exists Influenza Vaccine Completed 04/13/2024, , 05/05/2021, Additional history exists HIB Vaccines Aged Out No longer eligi ble based on patient's age to complete this topic HPV Vaccines Aged Out No longer eligi ble based on patient's age to complete this topic IPV Vaccines Aged Out No longer eligi ble based on patient's age to complete this topic Meningococcal Vaccine Aged Out No chon nirali eligible based on patient's age to complete this topic RSV under 20 months Aged Out No longe r eligible based on patient's age to complete this topic Rotavirus Vaccines Aged Out No longer eligible based on patient's age to complete this topic Procedures Procedure Name Priority Date/Time Associated Diagnosis Comments BITEWING - SINGLE RADIOGRAPHIC IMAGE Routine 07/29/2024 10:30 AM EST INTRAORAL - PERIAPICAL EACH ADDITIONAL RADIOGRAPHIC IMAGE Routine 07/29/2024 10:30 AM EST INTRAORAL - PERIAPICAL FIRST RADIOGRAPHIC IMAGE Routine 07/29/2024 10:30 AM EST LIMITED ORAL EVALUATION - PROBLEM FOCUSED Routine 07/29/2024 10:30 AM EST PROPHYLAXIS - ADULT Routine 03/25/2024 8 :00 AM EDT INTRAORAL - COMPLETE SERIES OF RADIOGRAPHIC IMAGES Routine 03/25/2024 8:00 AM EDT PERIODIC ORAL EVALUATION - ESTABLISHED PATIENT Routine 03/25/2024 8:00 AM EDT LIPID PANEL WITH REFLEX TO DIRECT LDL Routine 03/10/2024 10:05 AM EDT Primary hypertension Mixed hyperlipidemia CT LUNG SCREENING FOLLOW UP (LOW DOSE) Routine 03/22/2022 HM COLONOSCOPY Routine 10/24/2020 11:34 AM EDT from Last 3 Months or Most Recently Relevant to Health Maintenance Results * (ABNORMAL) Lipid Panel with Reflex to Direct LDL (03/10/2024 10:05 AM EDT) Triglycerides 165(H) <150 mg/dL [facility] Comment:Desirable Triglyceri de: less than 150 mg/dLBorderline High Triglyceride 150-199 mg/dLHigh Triglyceride: 200-499 mg/dLVery High Triglyceride: greater than or equal to 5OO mg/dL Cholesterol 183 <200 mg/dL [facility] Comment:Desirable Cholestero l: less than 200 mg/dLBorderline High Cholesterol: 200-239 mg/dLHigh Cholesterol: greater than 239 mg/dL LDL Cholesterol Calculated 95 <100 mg/dL [facility] Comment:Desirable LDL: less than 100 mg/dLNear Optimal/Above Optimal LDL: 110- 129 mg/dLBorderline High LDL: 130-159 mg/dLHigh LDL: 160-189 mg/dLVery High LDL: greater than or equal to 190 mg/dL HDL Cholesterol 55 >40 mg/dL [facility] Comment:Desirable HDL: great er than 40 mg/dL Note: This HDL assay may give artificially low results in patients with liver disease. Blood 03/10/2024 10:0 5 AM EDT 03/10/2024 11:16 AM EDT Nova Anderson MD LAB BLOOD ORDERABLES Fin al Result [facility] [address] [place] [phone] * CT LUNG SCREENING FOLLOW UP (LOW DOSE) (03/22/2022) Anatomical Region Laterality Modality Lung Computed Tomogra phy Nova Anderson MD IMG CT PROCEDURES Final Result * Colonoscopy (10/24/2020 11:34 AM EDT) [facility] Signature Colonoscopy Normal Normal Narrative Keturah Coreas - 10/24/2020 11:34 AM EDT Recommended 5 year follow up( [facility]) us Historical Provider HEALTH MAINTENANCE Edited Result - Final from Last 3 Months or Most Recently Relevant to Health Maintenance Insurance [facility] - HSN PARTIAL (MEDICAID) Care Teams Watch Technician Relationship Specialty Start Date End Date Nova Anderson MD [address] [place] [phone] PCP - General Family Medicine 02/05/19
--- OUTSIDE RECORDS SUMMARY | 2024-09-22 10:25 | XMS_ITS | Encounter Summary ---
Author Organization [employer] Address [address] [facility] 7[address] [place] [address] Care Team Providers Care Leather Finisher Name Role Phone Nova Piedra MD Primary Care Provider + Reason for Visit * Reason Onset Date Comments emergency dental no insurance 07/29/2024 Encounter Details Date Type Department Care Team ([facility] st Contact Info) Description 07/29/2024 Telephone [facility] ADULT DENTAL [address] [place], [place] [phone] Jamel Chawla DDS [address] [place] [address] emergency dental no insurance Social History Tobacco Use Types Packs/Day Years Used Date Smoking Tobacco: Former Cigarettes 1 45 0 02/13/1979 - 10/23/2013 Passive Smoke Exposure: Past Smokeless Tobacco: Never Comments:Quit on 2014 Alcohol Use Standard Drinks/Week Comments Not Currently 7 (1 standard drink = 0.6 oz pur e alcohol) Rare Housing Stability Answer Date Recorded What is [...] AM EDT documented as of this encounter Miscellaneous Notes * Telephone Encounter - Kate Mckenna - 07/29/2024 8:19 AM EST Patient is coming in for 10:30am emergency dental appt. Health Safety Net currently inactive. Patient is coming in as of 8:20 to speak with managed care for insurance and/or SFS assistance. documented in this encounter Plan of Treatment Upcoming Encounters Date Type Department Care Team (Late st Contact Info) Description 09/26/2024 2:00 PM EST Office Visit [facility] CHC ADULT DENTAL [address] [place] [address] Nolberto Ralph 11/25/2024 9:45 AM EDT Office Visit [facility] MEDICINE [address] [place] [address] Nova Piedra MD [address] [place] [address] documented as of this encounter Visit Diagnoses Not on filedocumented in this encounter Care Teams Leather Finisher Relationship Specialty Start Date End Date Nova Piedra MD [address] [place] [phone] PCP - General Family Medicine 02/05/19 documented as of this encounter
--- OUTSIDE RECORDS SUMMARY | 2024-09-22 10:25 | XMS_ITS | Encounter Summary ---
Author Organization [employer] Address [address] [facility] 7t [place] [address] Care Team Providers Care Client Relationship Manager Name Role Phone Nova Piedra MD Primary Care Provider + Reason for Visit * Reason Onset Date Comments November09/05/2024 Encounter Details Date Type Department Care Team ([facility] st Contact Info) Description 09/05/2024 Telephone [facility] MEDICINE [address] [place], [place] [phone] Nova Piedra MD [address] [place], [place] [phone] November recall Social History Tobacco Use Types Packs/Day Years [...] encounter Miscellaneous Notes * Telephone Encounter - Susan rBiggs [place] - 09/05/2024 11:37 AM EST Tc to pt to schedule fu htn/pain recall appt. Appt has been scheduled for 11/25/24 at 9:45 am. documented in this encounter Plan of Treatment Upcoming Encounters Date Type Department Care Team (Late st Contact Info) Description 09/26/2024 2:00 PM EST Office Visit [facility] CH[facility] ADULT DENTAL [address] [place] [address] Nolberto Ralph 11/25/2024 9:45 AM EDT Office Visit [facility] MEDICINE [address] [place] [address] Nova Piedra MD [address] [place] [phone] documented as of this encounter Visit Diagnoses Not on filedocumented in this encounter Care Teams Client Relationship Manager Relationship Specialty Start Date End Date Nova Piedra MD [address] [place] [phone] PCP - General Family Medicine 02/05/19 documented as of this encounter
== END 2024-09-22 10:21 | disposition home or self-care (01) ==
LOC: HO.MRI 10:20
PROVIDERS: PCP Internal Medicine; Visit Provider Nurse Practitioner Family
DX: M16.0 Bilateral primary osteoarthritis of hip (principal); R10.31 Right lower quadrant pain; M25.551 Pain in right hip
CPT/HCPCS: 73721

== ENCOUNTER 2024-10-27 14:22 | Outpatient (AMB) | payer OTHER, SELFPAY ==
--- NOTE | 2024-10-27 14:24 | A.OFFVIS_ITS ---
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 Hx of right intra-articular hip steroid injection w/ US guidance on 07/31/[address] Henry with 80% of relief. Patient states ongoing pain for many years/a couple months. He states that his right hip is worse than his left hip. His pain is more focused on the glutes and it moves to his groin. Patient finds that his pain is worse when he is walking and laying on his side. IMPRESSION (MRI was done on 09/22/24): Osteoarthrosis, moderate to severe, right coxofemoral joint. 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 Rome lopez is a 63-year-old male who presents to the office today for right hip pain. He is formally a patient of pain management in which he received an intra-articular cortisone injection in July of this year into the right hip. Reports that he had good relief with the injection but it is beginning to wear off and he is continuing to have right groin pain. FORMERLY [facility], [facility] Medical History Osteoarthritis Hypertension Vitamin D deficiency Benign skin lesion of multiple sites Lipoma of extremity Back pain Dyslipidemia Surgical History History of excision of lesion (~05/10/22) Status post excision of lipoma Hx of arthroscopy of left knee History of colonoscopy Family History Mother Blocked artery Father Stroke Heart attack Social History (Updated 10/27/24 @ 14:27 by Wood Pride) Household Members Other:: alone Are you a primary health and social care teacher to a significant other at home: No Do you presently have visiting nurse or other home services: No Alcohol intake: current Alcohol intake frequency: 0-2 drinks per day Alcohol type: beer, wine and other Patient Tobacco Use Status: Former Tobacco user Tobacco use type: Cigarette Current occupational status: retired Review of Systems Const All systems reviewed & are unremarkable except as noted in HPI and below Physical Exam Vital Signs: BMI result Body Mass Index 31.0 Const General: cooperative, healthy appearing and no acute distress Resp Effort & Inspection: normal respiratory effort and able to speak in complete sentences Cardio Rate: regular rate Peripheral pulses: Peripheral pulses 2+ throughout Skin Lesions: no lesions Rashes: no rashes Extrem Other: Right hip: Limited range of motion with internal external rotation. No tenderness to palpation over the greater trochanteric bursa. Positive impingement. Able to perform straight leg raise. NVI. Assessment & Plan Assessment & Plan (1) Osteoarthritis of right hip: Code(s): M16.11 - Unilateral primary osteoarthritis, right hip Category: Medical Plan Mr. Rome lopez is a 63-year-old male who presents to the office today for right hip pain. He is formally a patient of pain management in which he received an intra-articular cortisone injection in July of this year into the right hip. Reports that he had good relief with the injection but it is beginning to wear off and he is continuing to have right groin pain. Dr. Lovelace was available to see the patient with me in the office today. Recommendation is for right total hip arthroplasty. At this time the patient would like to hold off and think about this and how he would like to proceed. The injection did offer him some relief in July however the pain is beginning to return. He may repeat cortisone injection with pain management if he wishes to do so. I provided him with my business card as well as Dr. Lovelace's and should he wish to move forward with surgery will reach out to our office and we will forward him to Ana to begin the process. X-rays of the right hip which were obtained on 04/24/2024 were reviewed by me, Jimena Cooper PA-C, revealed pistol deformity and significant osteoarthritis. Coding Level of Care Code New Pt Level 4 (30850) Diagnoses Osteoarthritis of right hip M16.11
[2024-10-27 14:27] VITALS: BMI 31.0
== END 2024-10-27 14:45 | disposition home or self-care (01) ==
LOC: HO.HOS 14:22
PROVIDERS: PCP Internal Medicine; Visit Provider Physician Assistant
DX: M16.11 Unilateral primary osteoarthritis, right hip (principal)
CPT/HCPCS: 99203

== ENCOUNTER → 2024-10-27 14:22 | Outpatient (BNVA) | payer OTHER, SELFPAY | PROVIDERS: PCP Internal Medicine; Visit Provider Physician Assistant | DX: M16.11 Unilateral primary osteoarthritis, right hip (principal); M25.552 Pain in left hip | CPT/HCPCS: 99202 ==

== ENCOUNTER 2024-12-17 11:02 | Outpatient (AMB) | payer OTHER, SELFPAY ==
--- NOTE | 2024-12-17 11:08 | MHC.OFFVIS ---
Vital Signs 12/17/24 11:15 Height 5 ft 11 in Weight 228 lb BMI 31.8 BP 139/76 Blood Pressure Location Rt brachial Position Sitting Pulse 79 Intake Visit Reasons: umbilical Hernia Intake Note: Patient referred by pcp Dr. Piedra for Umbilical hernia. Present for 2yrs. Patient c/o: denies pain. Irritated bulge that sticks out after bending. Distribution Superintendent Required: No Accompanied by: Self / Same As Patient Allergies No Known Allergies Allergy (Verified 10/27/24 14:26) Medication List - Last Reconciled 12/17/24 by Ko Scherer MD acetaminophen 650 mg PO Q6H PRN chlorhexidine gluconate 0.12% (Peridex) 15 mL buccal BID cholecalciferol (vitamin D3) (Vitamin D3) 50 mcg PO DAILY lisinopril 2.5 mg PO DAILY fvkedqqm-igo-ozsne-vit K-lycop 400-20-300 mcg (Men's Multivitamin) 1 tab PO DAILY omega-3 fatty acids (Fish Oil Concentrate) 1,000 mg PO DAILY rosuvastatin 20 mg PO DAILY HPI HPI umbilical Hernia: Details: 64-year-old male referred for an umbilical hernia. He has noticed this reducible mass on his umbilicus for about 2 years now. He says that this seemed to be increasing in size. Furthermore, he describes worsening discomfort. He denies GI complaints. [facility] Medical History (Updated 12/17/24 @ 11:25 by Ko Scherer MD) Reducible umbilical hernia Osteoarthritis Hypertension Vitamin D deficiency Benign skin lesion of multiple sites Lipoma of extremity Back pain Dyslipidemia Surgical History History of excision of lesion (~05/10/22) Status post excision of lipoma Hx of arthroscopy of left knee History of colonoscopy Family History Mother Blocked artery Father Stroke Heart attack Social History Household Members Other:: alone Are you a primary resident care director to a significant other at home: No Do you presently have visiting nurse or other home services: No Alcohol intake: current Alcohol intake frequency: 0-2 drinks per day Alcohol type: beer, wine and other Patient Tobacco Use Status: Former Tobacco user Tobacco use type: Cigarette Current occupational status: retired Review of Systems Const Denies chills and Denies fever(s) Card Denies chest pain, Denies dyspnea and Denies dyspnea on exertion Resp Denies cough, Denies dyspnea and Denies dyspnea on exertion GI Denies hematochezia and Denies change in bowel habits Denies hematuria and Denies difficulty urinating Musc Details: Right hip pain Denies back pain and Denies limited range of motion Neuro Denies focal weakness and Denies convulsions Psych Denies depression and Denies mood swings Physical Exam Vital Signs: Last Vital Signs Pulse 79 12/17/24 11:15 BP 139/76 12/17/24 11:15 BMI result Body Mass Index 31.8 Const General: comfortable and no acute distress Nutritional Appearance: overweight Orientation/consciousness: patient oriented x3 Neck Neck: Yes no lymphadenopathy Resp Auscultation: clear to auscultation bilaterally Cardio Rhythm: regular rhythm GI Other: He has a protuberant abdomen, there is note of a reducible umbilical hernia about 2.5 cm in diameter, nontender currently Palpation (GI): Soft to palpation, nontender and no guarding Neuro General: patient oriented x3 Assessment & Plan Assessment & Plan (1) Reducible umbilical hernia: Code(s): K42.9 - Umbilical hernia without obstruction or gangrene Category: Medical Plan: He has a reducible umbilical hernia was worsening size and discomfort. He wants this repaired. I explained to him the technique of repair with possible mesh placement. I reviewed the risks including but not limited to bleeding, infections, bowel injury, recurrence, as well as the benefits and alternatives. He understands and wants to proceed. I also explained to him what to expect postoperatively. Coding Level of Care Code New Pt Level 3 (84266) Diagnoses Reducible umbilical hernia K42.9
[2024-12-17 11:15] VITALS: BP 139/76; PULSE 79; BMI 31.8
--- OUTSIDE RECORDS SUMMARY | 2024-12-17 12:06 | XMS_ITS | Clinical Summary ---
Author Organization [employer] Address [address] [place] [address] Care Team Providers Care Stoker Mechanic Name Role Phone Nova Anderson MD Primary Care Provider + Allergies No known active allergies Medications acetaminophen (Tylenol 8 Hour) 650 MG ER tablet Take 1 tablet by mouth in the morning and 1 tablet at noon and 1 tablet in the evening. 021 Active aspirin 81 MG chewable tablet Chew 1 tablet at bed time. Active chlorhexidine (Peridex) 0.12 % solution Place 15 mL into mouth between cheek and gum every 12 (twelve) hours. 019 Active Multiple Vitamins-Minerals (Multivitamin) liquid Active omeprazole (PriLOSEC) [address] capsule Take 1 capsule by mouth at bed time. Active rosuvastatin (Crestor) 20 MG tabletIndications:Pure hypercholesterolemia Take 1 tablet (20 mg) by mouth Once per day. 90 tablet 3 024 Active lisinopril 2.5 MG tablet TAKE ONE TABLET EVERY MORNING 90 tablet 1 025 Active phenylephrine-shark liver oil-mineral oil-petrolatum (Preparation H) 0.25-3-14-71.9 % rectal ointment Insert into the rectum if needed in the morning and at bedtime for hemorrhoids for up to 10 days. 30 g 025 2024 Active Problems Problem Noted Date Diagnosed Date Primary osteoarthritis of right hip 11/25/2024 Assessment & Plan (11/25/2024 7:40 PM EDT): Failed PT and intra-articular steroids Continue to take Tylenol as needed, recommended weight reduction Follow-up with orthopedics as needed, he has not decided on hip replacement surgery yet. Pigmented skin lesions 11/25/2024 Assessment & Plan (11/25/2024 7:41 PM EDT): On his back, they're probably Aktinic keratoses Will refer to dermatology at his request. Rectal bleeding 11/25/2024 Grade I hemorrhoids 11/25/2024 Assessment & Plan (11/25/2024 7:39 PM EDT): Recommended to constipation, increase water and fiber intake Use Preparation H or hydrocortisone rectal cream as needed rectal bleeding and reconsult if symptoms do not resolve after 1 week. Colonoscopy is due in 2025 Right anterior shoulder pain 10/30/2023 Assessment & Plan (03/06/2024 2:14 PM EDT): Not responding to PT in the past. Refer to pain clinic as he's going to be seen for LBP as well. Assessment & Plan (10/30/2023 2:57 PM EDT): - Seems to be chronic (more than a year) We will reevaluate when he comes back from [facility] Umbilical hernia without obstruction and without gangrene 09/17/2023 Assessment & Plan (11/25/2024 7:50 PM EDT): Interested on exploring surgical option. Will refer to surgery Assessment & Plan (03/06/2024 2:13 PM EDT): [...] 02/14/2023 Primary hypertension 02/14/2023 Assessment & Plan (11/25/2024 7:39 PM EDT): Controlled. Advised to check BP at home and fu next mo with BP readings. Counseled re low salt diet/increase moderate physical activity. Continue low dose lisinopril Check home BP BIW and prn CP/VILLALOBOS/COLLINS Non smoking patient. Follow-up in 6 months Assessment & Plan (08/04/2024 5:04 PM EST): [...] 2013, obtain lung cancer screening results from [facility] Chronic low back pain 02/13/2023 Assessment & [...] ANAMARIA on Sleep study 09/29/22, following / [facility], Auto CPAP 8- 20cm Assessment [...] fats. FU lipids in 6m Obesity 09/21/2022 Assessment & Plan (11/25/2024 7:40 PM EDT): Discussed re weight reduction options including exercise, life style modifications, diet. Recommended to decrease soda and sugary beverage consumption, increase protein intake with meals (at least 1 portion of protein with each meal) to assist with satiety, increase dietary fiber Recommended at least 150 min/week of moderate intensity exercise. Declined/wants a referral to dietitian Polyp of colon 09/21/2022 Habitual snoring 09/21/2022 [...] Encounters Date Type Department Care Team Description 11/28/2024 Telephone [facility] [address] [place] [id number] Nova Anderson MD Order 11/26/[address] [address] Nova Anderson MD 11/25/2024 1:00 PM EDT Office Visit [address] [address] Nova Anderson MD Primary osteoarthritis of right hip (Primary Dx); Primary hypertension; Class 1 obesity due to excess calories with serious comorbidity and body mass index (BMI) of 32.0 to 32.9 in adult; Pigmented skin lesions; Grade I hemorrhoids; Dietary counseling; Exercise counseling; Umbilical hernia without obstruction and without gangrene 11/25/2024 Travel 11/18/[address] [address] Nova Anderson MD Chart prep 11/14/2024 Patient Outreach [address] [address] Nova Anderson MD Pre-visit Planning ((Unable to reach for PVP screening, LVM)) 10/28/[address] [address] Nova Anderson MD Appointment Request 10/25/[address] [address] Nova Anderson MD 09/26/2024 2:00 PM EST Office Visit [facility] [address] [place] [address] Nolberto Ralph Dental calculus (Primary Dx) 09/22/2024 Orders Only [facility] External Provider, [facility] from Last 3 Months Immunizations Immunization Administration Dates Next Due Influenza injectable quadriv [...] housing situation today? I have jovan elizabeth 11/25/[address] you li ve. Do you have problems with any of the following? None of the above 11/25/2024 Food Insecurity Answer Date Recorded Within the past 12 months, y ou worried that your food would run out before you got money to buy more: Never True 11/25/2024 Within the past 12 months,th e food you bought just didn't last and you didn't have enough money to get more: Never True Transportation Answer Date Recorded In the past 12 months, has l ack of transportation kept you from medical appts, meetings, work or from getting things needed for daily living? No 11/25/2024 Utilities Answer Date Recorded In the past 12 months, has t he electric, gas, oil or water company threatened to shut off services in your home? No 11/25/2024 Depression Answer Date Recorded Patient Health Questionnaire-2 Score 0 10/30/2023 Internet Access Answer Date Recorded Internet Access Q1 No 11/25/2024 Internet Access Q2 I do not want or need it 11/05 Sex and Gender Information Value Date Recorded Sex Assigned at Male 06/05/2022 10:35 AM EDT Legal Sex Male 10:35 AM EDT Gender Identity Male 06/05/2022 10:35 AM EDT Sexual Orientation Straight 06/05/2022 10 :35 AM EDT Last Filed Vital Signs Vital Sign Reading Time Taken Comments Blood Pressure 136/83 11/25/2024 1:10 PM EDT Pulse 74 11/25/2024 1:10 PM EDT Temperature 36.2 ??C (97.1 ??F) 11/25/2024 1:10 PM ED T Respiratory Rate 12 11/25/2024 1:10 PM EDT Oxygen Saturation 97% 11/25/2024 1:10 PM EDT Inhaled Oxygen Concentration - - Weight 106 kg (233 lb 4 oz) 11/25/2024 1:10 PM E DT Height 180.3 cm (5' 11 ) 11/25/2024 1:10 PM EDT Body Mass Index 32.53 11/25/2024 1:10 PM EDT Plan of Treatment Upcoming Encounters Date Type Department Care Team (Late st Contact Info) Description 03/27/2025 2:00 PM EDT Office Visit [facility] [address] [place] [address] Nolberto Ralph Health Maintenance Due Date Last Done Comments Anal Pap 1961 CT Colonography 1961 FIT DNA/Cologuard 1961 FIT 1961 FOBT 1960 HIV Screening 1960 Sigmoidoscopy 1961 Alcohol/Substance Use Screening 1973 Hepatitis C Screening 11/14/1979 Hepatitis A Vaccines (1 of 2 - Risk 2-dose series) 1980 Zoster Vaccines (1 of 2) 11/14/2011 Hepatitis B Vaccines (1 of 3 - Risk 3-dose series) 2021 COVID-19 Vaccine (1 - season) 2024 Dental Oral Exam 09/26/2024 03/25/2024, 03/2024, 10/31/2022 Depression Screening 10/29/2024 10/30/2023, 10/30/19 24 Pneumococcal Vaccine: 50+ Years (2 of 2 - PCV) 11/22/2024 11/23/2023 Lung Cancer Screening 02/18/2025 02/19/2024, 022 Dental Prophylaxis 03/27/2025 09/26/2024, 0 03/25/2024, 09/13/2023, Additional history exists Dental X-Ray: Bitewings 07/30/2025 07/29/20 24, 03/25/2024, 10/31/2022 Colonoscopy 10/24/2025 10/24/2020 Colorectal Cancer Screening 10/24/2025 SDOH Screening 11/25/2025 11/25/2024 Tobacco Screening 11/25/2025 11/25/2024 Dental X-Ray: Full Mouth 03/26/2027 03/25/2024 Lipid Panel 03/10/2029 03/10/2024, 02/03, 04/07/2022 DTaP/Tdap/Td Vaccines (3 - Td or Tdap) 10/23/2034 10/23/2024, 04/07/2015, 08/20/2004 RSV Patients and Patients Aged 60 years or older (1 - 1-dose 75+ series) 2036 Influenza Vaccine Completed 04/13/2024, , 05/05/2021, Additional [...] Procedure Name Priority Date/Time Associated Diagnosis Comments ORAL HYGIENE INSTRUCTIONS Routine 09/26/2024 2:00 PM EST CASE PRESENTATION, DETAILED AND EXTENSIVE TREATMENT PLANNING Routine 09/26/2024 2:00 PM EST PROPHYLAXIS - ADULT Routine 09/26/2024 2 :00 PM EST MR HIP WO CONTRAST RIGHT Routine 09/22/2024 10:35 AM EST BITEWING - SINGLE RADIOGRAPHIC IMAGE Routine 07/29/2024 10:30 AM EST INTRAORAL - COMPLETE SERIES OF RADIOGRAPHIC IMAGES Routine 03/25/2024 8:00 AM EDT PERIODIC ORAL EVALUATION - ESTABLISHED PATIENT Routine 03/25/2024 8:00 AM EDT LIPID PANEL WITH REFLEX TO DIRECT LDL Routine 03/10/2024 10:05 AM EDT Primary hypertension Mixed hyperlipidemia LUNG CANCER SCREENING Routine 02/19/2024 COLONOSCOPY Routine 10/24/2020 11:34 AM EDT from Last 3 Months or Most Recently Relevant to Health Maintenance Results * MR Hip w/o Contrast Right (09/22/2024 10:35 AM EST) Anatomical Region Laterality Modality Magnetic Resonan ce 09/22/2024 10:3 5 AM EST Narrative 09/23/2024 8:30 AM EST ? [facility] ?[address] ?[place] [address] ? Magnetic Resonance Report ? Signed ? Patient: Peter,Robinson ?MR#: [id number] ?? 6 ? : 1960 ?Acct:[id number] ? Age/Sex: 63 / M ?ADM Date: 09/22/24 ? Loc: HO.MRI ? Attending Dr: Suri KIMBROUGH ? Ordering Physician: Suri Mo ?? Date of Service: 09/22/24 ?? Procedure(s): MR hip RT wo con ?? Accession Number(s): [id number] ? cc: Suri Mo; Nova Anderson MD ? EXAMINATION: ?? MR HIP WITHOUT CONTRAST, RIGHT ? CLINICAL INFORMATION: ?? Right hip pain for months. ? COMPARISON: ?? Correlated to x-ray dated April 24, 2024. ? TECHNIQUE: ?? MRI of the right hip was obtained using routine sequences on a ?? high-field strength magnet. ? FINDINGS: ?? There is patchy bone marrow STIR signal within the articular surface of ?? the right acetabulum and to the femoral head. ?? There is marginal osteophyte formation and the superior and inferior ?? aspect of the right acetabulum. ?? There is bone marrow STIR signal abnormality in the anterior: Of the ?? right acetabulum and the posterior superior aspect of the right ?? acetabulum. ?? There is heterogeneous bone marrow STIR signal within the right femoral ?? neck into the intertrochanteric region. ?? No acute cortical disruption within the instability the region of the ?? right femur. ?? There is a small amount of fluid within the right coxofemoral joint. ?? There is joint space narrowing involving the right coxofemoral joint. ?? No signal abnormality within the muscles of the right hip. ?? Nonspecific prominent lymph nodes in the right inguinal region. ?? Normal flow-void signal within the visualized vessels. ?? Heterogeneous nodular enlarged prostate gland. ? MR/MR hip RT wo con ?? IMPRESSION: ?? Osteoarthrosis, moderate to severe, right coxofemoral joint. ? Electronically signed by: ??Richard Hawkins MD ??09/23/2024 08:27 AM ?? EST RP ? Dictated By: ?Richard Bradley MD ? Signed By: ?<Electronically signed by Richard Conde MD in OV> ? 09/23/24826 ? DD/ 1035 ? TD/TT: 09/22/24 1105 ? Filter Washer: ? Procedure Note Donotroyainterpreter, Image - 09/23/[address] [address] Magnetic Resonance Report Signed Patient: Michelle Peter#: [id number] 6 : 2Acct:[id number] Age/Sex: 63 / MADM Date: 09/22/24 Loc: HO.MRI Attending Dr: Suri KIMBROUGH Ordering Physician: Suri Mo Date of Service: 09/22/24 Procedure(s): MR hip RT wo con Accession Number(s): [id number] cc: Suri Mo; Nova Anderson MD EXAMINATION: MR HIP WITHOUT CONTRAST, RIGHT CLINICAL INFORMATION: Right hip pain for months. COMPARISON: Correlated to x-ray dated April 24, 2024. TECHNIQUE: MRI of the right hip was obtained using routine sequences on a high-field strength magnet. FINDINGS: There is patchy bone marrow STIR signal within the articular surface of the right acetabulum and to the femoral head. There is marginal osteophyte formation and the superior and inferior aspect of the right acetabulum. There is bone marrow STIR signal abnormality in the anterior: Of the right acetabulum and the posterior superior aspect of the right acetabulum. There is heterogeneous bone marrow STIR signal within the right femoral neck into the intertrochanteric region. No acute cortical disruption within the instability the region of the right femur. There is a small amount of fluid within the right coxofemoral joint. There is joint space narrowing involving the right coxofemoral joint. No signal abnormality within the muscles of the right hip. Nonspecific prominent lymph nodes in the right inguinal region. Normal flow-void signal within the visualized vessels. Heterogeneous nodular enlarged prostate gland. MR/MR hip RT wo con IMPRESSION: Osteoarthrosis, moderate to severe, right coxofemoral joint. Electronically signed by: Richard Hawkins MD 09/23/2024 08:27 AM EST RP Dictated By: Richard Bradley MD Signed By: <Electronically signed by Richard Conde MDin OV> 09/23/24 08 DD/ 1035 TD/TT: 09/22/24 1105 Filter Washer: [facility] External Provider IMG MRI PROCEDURES Edited Result - Final * (ABNORMAL) Lipid Panel with Reflex to Direct LDL (03/10/2024 10:05 AM EDT) Triglycerides 165(H) <150 mg/dL [facility] Comment:Desirable Triglyceri de: less than 150 mg/dLBorderline High Triglyceride 150-199 mg/dLHigh Triglyceride: 200-499 mg/dLVery High Triglyceride: greater than or equal to 5OO mg/dL Cholesterol 183 <200 mg/dL [facility] Comment:Desirable Cholestero l: less than 200 mg/dLBorderline High Cholesterol: 200-239 mg/dLHigh Cholesterol: greater than 239 mg/dL LDL Cholesterol Calculated 95 <100 mg/dL [facility] Comment:Desirable LDL: less than 100 mg/dLNear Optimal/Above Optimal LDL: 110- 129 mg/dLBorderline High LDL: 130-159 mg/dLHigh LDL: 160-189 mg/dLVery High LDL: greater than or equal to 190 mg/dL HDL Cholesterol 55 >40 mg/dL [facility] Comment:Desirable HDL: great er than 40 mg/dL Note: This HDL assay may give artificially low results in patients with liver disease. Blood 03/10/2024 10:0 5 AM EDT 03/10/2024 11:16 AM EDT Nova Anderson MD LAB BLOOD ORDERABLES Fin al Result [facility] [address] [place] [address] [phone] * Lung Cancer Screning (02/19/2024) Lung CT LUNGRADS 1 LUNGRADS 1, LUNGRADS 2 Anatomical Region Laterality Modality Other us Nova Anderson MD HEALTH MAINTENANCE Final Result * Colonoscopy (10/24/2020 11:34 AM EDT) Colonoscopy Normal Normal Narrative Keturah Coreas - 10/24/2020 11:34 AM EDT Recommended 5 year follow [place]( [facility] us Historical Provider HEALTH MAINTENANCE Edited Result - Final from Last 3 Months or Most Recently Relevant to Health Maintenance Insurance FORMERLY [facility] - HSN FULL (MEDICAID) Care Teams Stoker Mechanic Relationship Specialty Start Date End Date Nova Anderson MD [address] [place] [id number] PCP - General Family Medicine 02/05/19
--- OUTSIDE RECORDS SUMMARY | 2024-12-17 12:06 | XMS_ITS | Encounter Summary ---
Author Organization [employer] Address [address] [facility] 7t [place] [address] Care Team Providers Care Elementary Art Teacher Name Role Phone Nova Piedra MD Primary Care Provider + Encounter Details Date Type Department Care Team (Late st Contact Info) Description 01/18/2023 Abstract [facility] MEDICINE [address] [place] [address] Nova Piedra MD [address] [place], [place] [phone] Social History Tobacco Use Types Packs/Day Years [...] Description 03/27/2025 2:00 PM EDT Office Visit [facility]C ADULT DENTAL [address] [place] [address] Nolberto Ralhp documented as of this encounter Procedures Procedure Name Priority Date/Time Associated Diagnosis Comments HM COLONOSCOPY Routine 10/24/2020 11:34 AM EDT documented in this encounter Results * Hm Colonoscopy (10/24/2020 11:34 AM EDT) Colonoscopy Normal Normal Narrative Keturah Coreas - 10/24/2020 11:34 AM EDT Recommended 5 year follow up( [facility]) us Historical Provider HEALTH MAINTENANCE Edited Result - Final documented in this encounter Visit Diagnoses Not on filedocumented in this encounter Care Teams Elementary Art Teacher Relationship Specialty Start Date End Date Nova Piedra MD [address] [place] [address] PCP - General Family Medicine 02/05/19 documented as of this encounter
--- OUTSIDE RECORDS SUMMARY | 2024-12-17 12:06 | XMS_ITS | Encounter Summary ---
Author Organization [employer] Address [address] [facility] 7t [place] [address] Care Team Providers Care Heating And Ventilating Worker Name Role Phone Nova Piedra MD Primary Care Provider + Reason for Visit * Reason Onset Date Comments emergency dental no insurance 07/29/2024 Encounter Details Date Type Department Care Team (Late st Contact Info) Description 07/29/2024 Telephone [facility] ADULT DENTAL [address] [place], [place] [phone] Jamel Chawla DDS [address] [place] [address] emergency dental no insurance Social History Tobacco [...] in as of 8:[address] [facility] for insurance and/or SFS assistance. documented in this encounter Plan of Treatment Upcoming Encounters Date Type Department Care Team (Late st Contact Info) Description 03/27/2025 2:00 PM EDT Office Visit [facility] ADULT DENTAL [address] [place] [address] Nolberto Ralph documented as of this encounter Visit Diagnoses Not on filedocumented in this encounter Care Teams Heating And Ventilating Worker Relationship Specialty Start Date End Date Nova Piedra MD [address] [place] [id number] PCP - General Family Medicine 02/05/19 documented as of this encounter
--- OUTSIDE RECORDS SUMMARY | 2024-12-17 12:06 | XMS_ITS | Encounter Summary ---
Author Organization [employer] Address [address] [facility] 7t [place] [address] Care Team Providers Care Professor Of Religious Studies Name Role Phone Nova Piedra MD Primary Care Provider + Encounter Details Date Type Department Care Team (Latest Contact Info) Description 02/25/2019 Abstract [facility] CONVERSIONS Dental, Provider, DDS Social History [...] Upcoming Encounters Date Type Department Care Team ( st Contact Info) Description 03/27/2025 2:00 PM EDT Office Visit [facility] ADULT DENTAL [address] [place] [address] Nolberto Ralph documented as of this encounter Visit Diagnoses Not on filedocumented in this encounter Care Teams Professor Of Religious Studies Relationship Specialty Start Date End Date Nova Piedra MD [address] [place] [id number] PCP - General Family Medicine 02/05/19 documented as of this encounter
--- OUTSIDE RECORDS SUMMARY | 2024-12-17 12:06 | XMS_ITS | Encounter Summary ---
Author Organization [employer] Address [address] [facility] [address] [place] [address] Care Team Providers Care Wellness Director Name Role Phone Nova Piedra MD Primary Care Provider + Encounter Details Date Type Department Care Team (Latest Contact Info) Description 12/09/2020 Abstract [facility] CONVERSIONS Dental, Provider, DDS Social History Tobacco [...] 2:00 PM EDT Office Visit [facility] ADULT DENTAL [address] [place] [address] Nolberto Ralph documented as of this encounter Visit Diagnoses Not on filedocumented in this encounter Care Teams Wellness Director Relationship Specialty Start Date End Date Nova Piedra MD [address] [place] [id number] PCP - General Family Medicine 02/05/19 documented as of this encounter
== END 2024-12-17 11:21 | disposition home or self-care (01) ==
LOC: HO.HGS 11:02
PROVIDERS: PCP Internal Medicine; Visit Provider Surgery
DX: K42.9 Umbilical hernia without obstruction or gangrene (principal)
CPT/HCPCS: 99213

== ENCOUNTER → 2024-12-17 11:02 | Outpatient (BNVA) | payer OTHER, SELFPAY | PROVIDERS: PCP Internal Medicine; Visit Provider Surgery | DX: K42.9 Umbilical hernia without obstruction or gangrene (principal) | CPT/HCPCS: 99212 ==

== ENCOUNTER 2025-01-16 06:05 | Day surgery (SDC) | payer OTHER, SELFPAY ==
[2025-01-14 12:14] VITALS: BMI 31.8
--- NOTE | 2025-01-15 09:17 | HO.ANESPROP2 ---
Documented by User: Irma Jimenez NP 01/15/25 09:18 HPI - Anesthesia Eval Consult details Narrative: 64yo M for Repair of umbilical hernia possible mesh PMFSH Active Problems Active Problems: All Active Problems Osteoarthritis of right hip (Acute) Right groin pain (Acute) Osteoarthritis of right shoulder (Acute) Sacroiliac joint pain (Acute) Osteoarthritis of hips, bilateral (Acute) Right shoulder pain (Acute) Right hip pain (Acute) Lumbosacral spondylosis (Acute) Chronic low back pain (Acute) Encounter for screening colonoscopy (Acute) Reducible umbilical hernia (Acute) Benign skin lesion of multiple sites (Acute) Lipoma of extremity (Acute) Dyslipidemia (Acute) Past Medical History Medical History (Updated 01/14/25 @ 12:17 by Brinda Gaming, RN) ANAMARIA (obstructive sleep apnea) H/O hemorrhoids Reducible umbilical hernia Osteoarthritis Hypertension Vitamin D deficiency Benign skin lesion of multiple sites Lipoma of extremity Back pain Dyslipidemia Family History Family History Mother Blocked artery Father Stroke Heart attack Surgical History Surgical History (Updated 01/16/25 @ 06:27 by Monica Sal RN) H/O hand surgery History of excision of lesion (~05/10/22) Status post excision of lipoma Hx of arthroscopy of left knee History of colonoscopy Social History Social History Household Members Other:: alone Are you a primary respiratory care instructor to a significant other at home: No Do you presently have visiting nurse or other home services: No Alcohol intake: current Alcohol intake frequency: 3 or more drinks per day Alcohol type: beer, wine and other Patient Tobacco Use Status: Former Tobacco user Tobacco use type: Cigarette Years Smoked: 40 Smoked in Last 30 Days: No Use of substances other than those prescribed or required for medical reasons: No Have you been hit, kicked, punched, or otherwise hurt by someone within the past year? If so, by whom?: No Are you DNR?: No Advance Directives: No Advance Directives Information Provided: No Advance Directives on File: No Current occupational status: retired Meds Allergies Allergy/AdvReac Type Severity Reaction Status Date / Time No Known Allergies Allergy Verified 01/16/25 06:13 Home Medications ?Medication ?Instructions ?Recorded ?Confirmed ?Last Taken ?Type omega-3 fatty acids 1,000 mg 1,000 mg PO DAILY 09/01/20 01/16/25 01/15/25 History capsule (Fish Oil Concentrate) cholecalciferol (vitamin D3) 50 50 mcg PO DAILY 10/19/20 01/16/25 Unknown History mcg (2,000 unit) capsule (Vitamin D3) rwwpbsgn-gvfjszdd-ugksk acid 400 1 tab PO DAILY 10/19/20 01/16/25 Unknown History mcg-vit K 20 mcg-lycop 300 mcg tablet (Men's Multivitamin) rosuvastatin 20 mg tablet 20 mg PO DAILY 05/10/22 01/16/25 Unknown History lisinopril 2.5 mg tablet 2.5 mg PO DAILY 04/24/24 01/16/25 01/15/25 History acetaminophen 650 mg 650 mg PO Q8H PRN Pain 01/14/25 01/16/25 Unknown History tablet,extended release Exam Height,Weight and Vital Signs: Height 5 ft 11 in Weight 103.419 kg Assessment and Plan Assessment Anesthesia Assessment: Chart Reviewed Documented by User: Cruz Lay MD 01/16/25 07:08 [facility] Past Medical History Medical History (Updated 01/14/25 @ 12:17 by Brinda Gaming RN) ANAMARIA (obstructive sleep apnea) H/O hemorrhoids Reducible umbilical hernia Osteoarthritis Hypertension Vitamin D deficiency Benign skin lesion of multiple sites Lipoma of extremity Back pain Dyslipidemia Family History Family History Mother Blocked artery Father Stroke Heart attack Family history of problems with anesthesia: No Surgical History Surgical History (Updated 01/16/25 @ 06:27 by Monica Sal, YENNI) H/O hand surgery History of excision of lesion (~05/10/22) Status post excision of lipoma Hx of arthroscopy of left knee History of colonoscopy History of Problems with Anesthesia: No Social History Social History Household Members Other:: alone Are you a primary respiratory care instructor to a significant other at home: No Do you presently have visiting nurse or other home services: No Alcohol intake: current Alcohol intake frequency: 3 or more drinks per day Alcohol type: beer, wine and other Patient Tobacco Use Status: Former Tobacco user Tobacco use type: Cigarette Years Smoked: 40 Smoked in Last 30 Days: No Use of substances other than those prescribed or required for medical reasons: No Have you been hit, kicked, punched, or otherwise hurt by someone within the past year? If so, by whom?: No Are you DNR?: No Advance Directives: No Advance Directives Information Provided: No Advance Directives on File: No Current occupational status: retired Meds Allergies Allergy/AdvReac Type Severity Reaction Status Date / Time No Known Allergies Allergy Verified 01/16/25 06:13 Home Medications ?Medication ?Instructions ?Recorded ?Confirmed ?Last Taken ?Type omega-3 fatty acids 1,000 mg 1,000 mg PO DAILY 09/01/20 01/16/25 01/15/25 History capsule (Fish Oil Concentrate) cholecalciferol (vitamin D3) 50 50 mcg PO DAILY 10/19/20 01/16/25 Unknown History mcg (2,000 unit) capsule (Vitamin D3) kucvjmgg-feozhzpv-wvikd acid 400 1 tab PO DAILY 10/19/20 01/16/25 Unknown History mcg-vit K 20 mcg-lycop 300 mcg tablet (Men's Multivitamin) rosuvastatin 20 mg tablet 20 mg PO DAILY 05/10/22 01/16/25 Unknown History lisinopril 2.5 mg tablet 2.5 mg PO DAILY 04/24/24 01/16/25 01/15/25 History acetaminophen 650 mg 650 mg PO Q8H PRN Pain 01/14/25 01/16/25 Unknown History tablet,extended release Exam Exam Date and Time: 01/16/2025 Airway Mallampati Class: III TM Dist: >3cm Neck ROM: Full Loose/Missing/Broken Teeth: No Heart: rrr Lungs: cta Assessment and Plan Assessment Anesthesia Assessment: Anesthesia Plan Discussed Final Anesthetic Review Family History of Problems with Anesthesia: No History of Problems with Anesthesia: No NPO: Yes ASA Class: II Final Preanesthetic Review: No Changes in Pt Med Stat, Meds/Allgs Chart Reviewed, Consent Obtained/Reviewed and Anes Risks/Benef Reviewed Patient Risk: Low Procedure Risk: Low Anesthetic Plan Anesthetic Plan: GA Disposition: Standard PACU
[2025-01-16] VITALS (7 sets, daily range): BP systolic 119–137; BP diastolic 69–85; PULSE 52–71; RESP 16; TEMP 36.4–36.8; O2SAT 95–99; BMI 31.5
[2025-01-16] MEDS: Lactated Ringers 1,000 ML 100 ML IVCONT (06:39)
--- NOTE | 2025-01-16 07:18 | MHC.SHP ---
Pre-Procedural Eval Section A - 24 Hr Update-Section A only Date of Service: 01/16/25 The patient is an INPATIENT: No Changes since office visit: No Cold of Flu in the past 2 weeks, No New Medical Problems, No Changes in Medication and No Patient answered all questions The patient has been examined within 24 hours of the surgical procedure. The History & Physical has been completed within 30 days and I have reviewed it.: Yes Section B - Complete if H&P > 30 days Chief Complaint: Umbilical hernia without obstruction or gangrene Allergies: Allergies Allergy/AdvReac Type Severity Reaction Status Date / Time No Known Allergies Allergy Verified 01/16/25 06:13 Plan I have reviewed the history and physical and performed a pertinent physical examination on my patient. No changes have occurred unless specified. Time Spent With Patient Time: Total time managing care of this patient today ____ minutes.
[2025-01-16] MEDS: ceFAZolin Sodium/Dextrose,Iso 2 GM/50 ML PIGGYBACK IV (07:45)
--- NOTE | 2025-01-16 08:11 | P.OP_ITS ---
Operative Note Operative Note Date of Service: 01/16/25 Narrative: Preop diagnosis: Umbilical hernia reducible Postop diagnosis: The same Procedure: Repair of umbilical hernia with Phasix umbilical mesh Surgeon: Ko Scherer MD assistant associate full professor: BARB Argueta The patient is a 64-year-old male with note of reducible umbilical hernia. He understands the technique of the planned procedure and he is aware of the risks, benefits, and alternatives He was brought to the operating room and placed supine under general anesthesia via laryngeal mask airway. The abdomen was prepped and draped in the usual sterile fashion. A surgical time-out was done. The patient received cefazolin 2 g IV preoperatively I infiltrated the planned line of incision with lidocaine 1%. I made a transverse supraumbilical curvilinear incision with a blade 15. This was carried down through the full-thickness of the skin and subcutaneous fat with electrocautery. I then proceeded to dissect the umbilicus as a flap off of the rest of the abdominal wall to expose the umbilical hernia contents. The hernia contained only fat. There were no bowel loops in the vicinity of the fascial defect. I continued to do sharp dissection of the hernia to separate this from the well-nourished of the subcutaneous layer and the fascial defect. I continued with this dissection until I was able to completely reduce the hernia contents with the umbilical defect. The defect measured about 1.6 cm. I applied a Jerry clamp on the fascial layer. I cleared up margins to allow space for the mesh I then used a small-sized Phasix umbilical hernia mesh. I positioned this under the fascial defect. I flattened the mesh. I secured the Prolene straps of the mesh to the fascial layer on both sides with a Prolene 2-0 stitch. I then trimmed the Prolene straps flush on the fascial level . I then closed the fascial defect with the Maxon 1. Jsyteq-in-vaita stitch. I irrigated. I then tacked the umbilicus down to the fascia with a Polysorb 3-0 stitch to re-create the dimple. I reapposed the subcutaneous and subdermal layers with Polysorb 3-0 simple interrupted sutures. The skin incision was closed with a running subcuticular Polysorb 4-0 stitch The area was infiltrated with Marcaine 0.5% for postop analgesia. Dressings were applied. The procedure was completed The patient tolerated the procedure well. No immediate complications. Initial final counts of sponges and instruments were correct. Estimated blood loss was less than 10 cc The patient was extubated without difficulty and transferred to the recovery room with stable vital signs.
== END 2025-01-16 10:24 | disposition home or self-care (01) ==
PROVIDERS: PCP Internal Medicine; Visit Provider Surgery
PROC: (CPT 49591; principal; 2025-01-16 07:30)
DX: K42.9 Umbilical hernia without obstruction or gangrene (principal); I10 Essential (primary) hypertension; E78.5 Hyperlipidemia, unspecified; E55.9 Vitamin D deficiency, unspecified; G47.33 Obstructive sleep apnea (adult) (pediatric); Z79.899 Other long term (current) drug therapy; Z98.890 Other specified postprocedural states; Z87.891 Personal history of nicotine dependence
CPT/HCPCS: 49591; C1781; J0690; J1100; J2003; J2250; J2405; J2704; J2795; J3010

== ENCOUNTER → 2025-01-16 06:05 | Outpatient (BNV) | payer OTHER, SELFPAY | PROVIDERS: PCP Internal Medicine; Visit Provider Surgery | DX: K42.9 Umbilical hernia without obstruction or gangrene (principal) | CPT/HCPCS: 49591 ==

== ENCOUNTER 2025-02-02 10:10 | Outpatient (AMB) | payer OTHER, SELFPAY ==
[2025-02-02 10:13] VITALS: BP 127/64; PULSE 89; TEMP 36.9; O2SAT 95; BMI 31.6
--- NOTE | 2025-02-02 10:13 | A.OFFVIS_ITS ---
Vital Signs 02/02/25 10:13 Height 5 ft 11 in Weight 226 lb 10.163 oz BMI 31.6 BP 127/64 Blood Pressure Location Lt brachial Position Sitting Pulse 89 Pulse Source Pulse Oximeter Temp 98.5 F Temp Source Temporal Artery Scan Pulse Oximetry (%) 95 Oxygen Delivery Method Room Air Intake Visit Reasons: s/p umbilical hernia poss mesh Intake Note: Pt presents to the office today for a s/p umbilical hernia poss mesh. Pt states he is overall feeling well and denies any concerns at this time. Allergies No Known Allergies Allergy (Verified 02/02/25 10:15) HPI HPI s/p umbilical hernia poss mesh: Details: Mr. Peter underwent Repair of umbilical hernia with Phasix umbilical mesh on 01/16/[address] Scherer. He tolerated the procedure well. He reports taking the oxycodone and ibuprofen for a few days post operatively but now takes them sparingly more for his hip pain. He needs a right hip replacement. Denies any abd incisional pain. He is eating ok, moving his bowels without difficulty. He does not have any concerns. [facility] Medical History ANAMARIA (obstructive sleep apnea) H/O hemorrhoids Reducible umbilical hernia Osteoarthritis Hypertension Vitamin D deficiency Benign skin lesion of multiple sites Lipoma of extremity Back pain Dyslipidemia Surgical History History of umbilical hernia repair (01/16/25) H/O hand surgery History of excision of lesion (~05/10/22) Status post excision of lipoma Hx of arthroscopy of left knee History of colonoscopy Family History Mother Blocked artery Father Stroke Heart attack Social History Household Members Other:: alone Are you a primary small animal caretaker to a significant other at home: No Do you presently have visiting nurse or other home services: No Alcohol intake: current Alcohol intake frequency: 3 or more drinks per day Alcohol type: beer, wine and other Patient Tobacco Use Status: Former Tobacco user Tobacco use type: Cigarette Years Smoked: 40 Current occupational status: retired Review of Systems Const All systems reviewed & are unremarkable except as noted in HPI and below Physical Exam Vital Signs: Last Vital Signs Temp 98.5 F 02/02/25 10:13 Pulse 89 02/02/25 10:13 BP 127/64 02/02/25 10:13 Pulse Ox 95 02/02/25 10:13 Oxygen Delivery Method Room Air 02/02/25 10:13 BMI result Body Mass Index 31.6 Const General: comfortable, no acute distress and alert Orientation/consciousness: patient oriented x3 Resp Effort & Inspection: normal respiratory effort GI Other: umbilical incision well healed and approximated, no erythema, very mild residual induration Palpation (GI): Soft to palpation, nontender and no guarding Skin General skin exam: no rashes or lesions noted Neuro General: patient oriented x3 and moves all extremities Assessment & Plan Assessment & Plan (1) S/P umbilical hernia repair, follow-up exam: Code(s): Z09 - Encounter for follow-up examination after completed treatment for conditions other than malignant neoplasm Category: Surgical Plan 64 year old male who is 2 weeks s/p repair of umbilical hernia with Phasix umbilical mesh. He tolerated the procedure well and is doing well post o peratively. His umbilical incision is well healing without any evidence of infection or hernia recurrence. He was instructed to continue lifting (>20lbs) and strenuous activity restrictions until he is 6 weeks post operatively. He understands and agrees with plan. He can call the office if he develops any concerns. Coding Level of Care Code Est Pt Level 2 (74667) Diagnoses S/P umbilical hernia repair, follow-up exam Z09 Time Spent (min) 25
--- OUTSIDE RECORDS SUMMARY | 2025-02-02 10:48 | XMS_ITS | Encounter Summary ---
Author Organization [employer] Address [address] [facility] 7t [place] [address] Care Team Providers Care Ticket Sorter Name Role Phone Nova Piedra MD Primary Care Provider + Encounter Details Date Type Department Care Team (Latest Contact Info) Description 02/25/2019 Abstract [facility] CONVERSIONS Dental, Provider, DDS Social History [...] Description 03/27/2025 2:00 PM EDT Office Visit [facility] ADULT DENTAL [address] [place] [address] Nolberto Ralph documented as of this encounter Visit Diagnoses Not on filedocumented in this encounter Care Teams Ticket Sorter Relationship Specialty Start Date End Date Nova Piedra MD [address] [place] [id number] PCP - General Family Medicine 02/05/19 documented as of this encounter
== END 2025-02-02 10:42 | disposition home or self-care (01) ==
LOC: HO.HGS 10:11
PROVIDERS: PCP Internal Medicine; Visit Provider Physician Assistant Surgical
DX: Z09 Encounter for follow-up examination after completed treatment for conditions other than malignant neoplasm (principal)
CPT/HCPCS: 99212

== ENCOUNTER → 2025-02-02 10:10 | Outpatient (BNVA) | payer OTHER, SELFPAY | PROVIDERS: PCP Internal Medicine; Visit Provider Physician Assistant Surgical | DX: Z09 Encounter for follow-up examination after completed treatment for conditions other than malignant neoplasm (principal); Z98.890 Other specified postprocedural states | CPT/HCPCS: 99212 ==

== ENCOUNTER 2025-02-23 12:16 | Outpatient (REF) | payer OTHER, SELFPAY ==
--- OUTSIDE RECORDS SUMMARY | 2025-02-18 23:59 | XMS_ITS | Continuity of Care Document ---
Author Organization [facility] Address [address] [place] [address]- Care Team Providers Care Drafter Civil (Cad) Name Role Phone Tadeo WELCH, Nova Alicea Primary Care Physician Encounter [facility] Date(s): 01/19/25 - 02/18/25 [facility] [address] [place] [id number] Encounter Type: Triage Allergies, Adverse Reactions, Alerts No Known Allergies Immunizations Given and Recorded Vaccine Date Status Refusal Reason tetanus/diphtheria/pertussis, acel(Tdap) 04/07/15 Given influenza virus vaccine, inactivated 05/18/13 Give n influenza virus vaccine, inactivated 05/20/11 Give n influenza virus vaccine, inactivated 1 07/01/08 Gi uriel tetanus-diphtheria toxoids (Td) 08/20/04 Given 1Admin Note: sanofi pasteur no contraindications Medications aspirin 81 mg oral tablet 1 tablet = 81 mg, By Mouth, Daily, 0 Refills, Maintenance, 12/29/11 4:45:52 PM EDT Start Date: 12/29/11 Status: Ordered Repeat number: 1 Fish Oil 1000 mg oral capsule 1 capsule = 1,000 mg, By Mouth, Daily, # 90 capsule, 0 Refills, Maintenance, 12/29/11 4:45:14 PM EDT Start Date: 12/29/11 Status: Ordered Quantity: 90.0 Unit: capsule Repeat number: 1 Lipitor 40 mg oral tablet 1 tablet = 40 mg, By Mouth, Daily, # 90 tablet, 3 Refills, Maintenance, Tablet, Route to Pharmacy Electronically, [id number], [facility] Start Date: 03/14/18 Status: Ordered Quantity: 90.0 Unit: tablet Repeat number: 4 Viagra 100 mg oral tablet 0.5 - 1 tablet, By Mouth, Daily, PRN as needed for erectile dysfunction, # 12 tablet, 2 Refills, Maintenance, 09/17/17 4:38:51 PM EST, [facility] Start Date: 09/17/17 Stop Date: 06/14/18 Status: Ordered Quantity: 12.0 Unit: tablet Repeat number: 3 Vitamin D3 1000 intl units oral tablet 1 tablet = 1,000 International_Units, By Mouth, Daily, # 30 tablet, 0 Refills, Maintenance, :45:00 PM EDT, Tablet Start Date: 12/29/11 Status: Ordered Quantity: 30.0 Unit: tablet Repeat number: 1 Problem List Condition Confirmation Course Effective Dates Status H ealth Status Informant Erectile dysfunction Confirmed Active FH: Cardiovascular disease Confirmed Active Hyperlipidemia 1, 2 Confirmed Active Obese class I Confirmed Active Obesity (BMI 30.0-34.9) Confirmed Active Obstructive sleep apnea Confirmed Active Seasonal allergic rhinitis Confirmed Active VITAMIN D DEFICIENCY Confirmed Active 1per new guidelines, goal at least 30% reduction in LDL 2LDL goal <130 Social History Social History Type Response Smoking Status Former smoker; Type: Cigarettes; Other: quit 2013; entered on: 04/07/15 Sex Sex Representation Male (finding) Patient Care team information Care Team Personnel Name: Nova Piedra MD Position: [facility] Outreach Member Role: PCP Address: [address] [place] [address] Telecom: Care Team Related Persons Name: YVETTE TALBOT Name: REJI SURESH Insurance Providers Guarantor name: MAGALYS OAKES Sympler Plan Information #: 1 Payer: [employer] Payer Identifier: NA Member Number: [id number] Group Number: [id number] Subscriber Identifier: [id number] Relationship to Subscriber: self Coverage Type: Managed Care (Private) Coverage Verification Date: NA Telecom: NA Address:
--- NOTE | ~2025-02-23 | XR_ITS ---
EXAMINATION: XR PELVIS CLINICAL INFORMATION: M25.559 - Pain in unspecified hip COMPARISON: 04/24/2024 TECHNIQUE: AP view of the pelvis. 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 There is severe superior hip joint space narrowing on the right mild axial joint space narrowing on the left. There are marginal osteophytes, moderate on the right and small on the left. Degenerative cystic changes present in the lateral roof of the right acetabulum. Inferior SI joints are moderately sclerotic with marginal osteophytes. 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 Stable Mild osteoarthritis, bilateral SI joints. Stable. Electronically signed by: Caesar Valdes MD 02/23/2025 02:33 PM EDT
--- OUTSIDE RECORDS SUMMARY | 2025-02-23 13:06 | XMS_ITS | Patient Health Record ---
Author Organization [facility] Address [address] [place] [address] Care Team Providers Care Steam Shovel Operating Engineer Name Role Phone Ahsan Aviles MD Primary Care Provider UnavailBaldomero Moser Unavailable [phone] Reason For Referral No Information Medications Medication SIG (Take, Route, Fr equency, Duration) Notes Start Date End Date Status Atorvastatin Calcium Active Aspirin 81 MG 1 tablet Orally Once a day Active [employer] 3 Active Vitamin D3 Active Fish Oil Active Social History Tobacco Use: Social History Observation Description Date Details (start date - stop date) Former Smoker NA - NA Tobacco Use/Smoking Question Answer Notes Are you a: former smoker Are you a: former smoker Additional Findings: Tobacco Non-User Current no n-smoker Alcohol Screen Question Answer Notes Did you have a drink contain ing alcohol in the past year? Yes How often did you have a dri nk containing alcohol in the past year? 4 or more times a week (4 points) Points 4 Interpretation Positive Tobacco use other than smoking: Question Answer Notes Are you an other tobacco user? No Are you an other tobacco user? No Problems Problem Type SNOMED Code ICD Code Onset Dates Problem Status W/U Status Risk Notes Problem Tinea unguium (938216372) Tinea unguium (B35.1) Active confirmed Pt would like to start topical antifungal treatment Plan Of Treatment Pending Test Test Name Order Date [id number] NAIL, 6 OR MORE 04/18/2016 [id number] NAIL, 1-5 01/18/2016 Insurance Providers Payer Name Payer Address Payer Phone Subscriber Number Group Number Insured Name Patient Relationship to Insured Coverage Start Date Coverage End Date [employer] [address] [place] [address] [id number] Robinson Peter Self - patient is the insured Medical (General) History Medical History History ICD Code Back,Hip,and Knee pain Diverticulosis chronic sinusitis Cholesterol
--- OUTSIDE RECORDS SUMMARY | 2025-02-23 13:06 | XMS_ITS | Encounter Summary ---
Author Organization [employer] Address [address] [facility] 7t [place] [address] Care Team Providers Care Assurance Senior Manager Insurance Name Role Phone Nova Piedra MD Primary Care Provider + Reason for Visit * Reason Onset Date Comments April02/19/2025 Encounter Details Date Type Department Care Team ([facility] st Contact Info) Description 02/19/2025 Telephone [facility] MEDICINE [address] [place], [place] [phone] Nova Piedra MD [address] [place], [place] [phone] April Social History Tobacco Use Types Packs/Day Years [...] Miscellaneous Notes * Telephone Encounter - Susan Briggs MA - 02/19/2025 9:34 AM EDT Telephone call to patient to schedule the following recall: Visit type: Follow up Appointment notes: HTN Patient agree to appointment on 05/07/25 at 11:15 AM with Tadeo. documented in this encounter Plan of Treatment Upcoming Encounters Date Type Department Care Team (Late st Contact Info) Description 03/10/2025 9:30 AM EDT Office Visit [facility] ADULT DENTAL [address] [place] [address] Erlin Orlando [address] [place] [address] 03/27/2025 2:00 PM EDT Office Visit [facility] ADULT DENTAL [address] [place] [address] Nolberto Ralph 05/07/2025 11:15 AM EDT Office Visit [facility] MEDICINE [address] [place] [address] Nova Piedra MD [address] [place] [address] documented as of this encounter Visit Diagnoses Not on filedocumented in this encounter Care Teams Assurance Senior Manager Insurance Relationship Specialty Start Date End Date Nova Piedra MD [address] [place] [address] PCP - General Family Medicine 02/05/19 documented as of this encounter
== END 2025-02-23 12:17 | disposition home or self-care (01) ==
LOC: HO.HOSX 12:16
PROVIDERS: Visit Provider Orthopaedic Surgery
DX: M16.11 Unilateral primary osteoarthritis, right hip (principal)
CPT/HCPCS: 72170; 99212

== ENCOUNTER 2025-02-23 13:39 | Outpatient (AMB) | payer OTHER, SELFPAY ==
--- NOTE | 2025-02-23 13:52 | MHC.OFFVIS ---
Intake Visit Reasons: OV- Discuss R LULU Intake Note: Robinson is a 64 year old male who presents today to discuss total right hip replacement surgery. He reports that he recently had a umbilical hernia repair with Dr. Scherer 01/16/25. Allergies No Known Allergies Allergy (Verified 02/02/25 10:15) HPI HPI OV- Discuss R LULU: Details: Robinson is a 63 year old male with bilateral hip pain right greater than left.. Hx of right intra-articular hip steroid injection w/ US guidance on 07/31/[address] Henry with 80% of relief. Patient states ongoing pain for many years/a couple months. He states that his right hip is worse than his left hip. His pain is more focused on the glutes and it moves to his groin. Patient finds that his pain is worse when he is walking and laying on his side. He is otherwise helping and active but this is limiting his ability to engage in daily activities. He has constant pain and the quality of his life is diminished. He would like to further discuss hip replacement. [facility] Medical History ANAMARIA (obstructive sleep apnea) H/O hemorrhoids Reducible umbilical hernia Osteoarthritis Hypertension Vitamin D deficiency Benign skin lesion of multiple sites Lipoma of extremity Back pain Dyslipidemia Surgical History History of umbilical hernia repair (01/16/25) H/O hand surgery History of excision of lesion (~05/10/22) Status post excision of lipoma Hx of arthroscopy of left knee History of colonoscopy Family History Mother Blocked artery Father Stroke Heart attack Social History Household Members Other:: alone Are you a primary health care administrator to a significant other at home: No Do you presently have visiting nurse or other home services: No Alcohol intake: current Alcohol intake frequency: 3 or more drinks per day Alcohol type: beer, wine and other Patient Tobacco Use Status: Former Tobacco user Tobacco use type: Cigarette Years Smoked: 40 Current occupational status: retired Physical Exam Extrem Other: Mild Trendelenburg gait. Externally rotated right hip with positive impingement and Stinchfield test on the right. Dorsalis pedis pulse 2 +and he is firing his EHL/gastrocs/tibialis anterior. Results Reviewed Results Reviewed: I personally reviewed relevant radiographs. 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 This has progressed since prior x-ray. Ssbe-ib-[id number] osteoarthritis of the left hip with similar findings of cam impingement Assessment & Plan Assessment & Plan (1) Osteoarthritis of right hip: Code(s): M16.11 - Unilateral primary osteoarthritis, right hip Category: Medical Plan: This is a 64-year-old with severe osteoarthritis of the right hip. He takes medication for high blood pressure but is otherwise healthy. He is retired active and enjoys traveling. He feels this groin pain limits his ability to walk and to enjoy life. Given his radiographs and the clinical findings I recommend hip arthroplasty. I discussed the risks, benefits and alternatives including, but not limited to, the risk of pain, infection, stiffness, leg length discrepancy, nerve injury, aseptic loosening and the need for further surgery as well as potential medical complications such as blood clots, pulmonary embolism and cardiac complications. He expressed understanding. We will begin the preoperative clearance process. He is a good candidate and understands the procedure. I answered his questions to the best of my abilities. Orders: Orders XR pelvis 1-2V 02/23/25 M25.559 - Pain in unspecified hip Coding Level of Care Code Est Pt Level 4 (63282) Diagnoses Osteoarthritis of right hip M16.11
== END 2025-02-23 14:18 | disposition home or self-care (01) ==
LOC: HO.HOS 13:39
PROVIDERS: PCP Internal Medicine; Visit Provider Orthopaedic Surgery
DX: M16.11 Unilateral primary osteoarthritis, right hip (principal)
CPT/HCPCS: 99214

== ENCOUNTER → 2025-02-23 13:42 | Outpatient (BNV) | payer OTHER, SELFPAY | PROVIDERS: Visit Provider Radiology Diagnostic Radiology | DX: M16.0 Bilateral primary osteoarthritis of hip (principal) | CPT/HCPCS: 72170 ==

== ENCOUNTER → 2025-04-21 11:05 | Outpatient (BNVA) | payer OTHER, SELFPAY | PROVIDERS: PCP Internal Medicine | DX: Z01.818 Encounter for other preprocedural examination (principal) ==

== ENCOUNTER 2025-04-27 | Outpatient (REF) | payer OTHER, SELFPAY ==
--- OUTSIDE RECORDS SUMMARY | 2025-03-24 10:23 | XMS_ITS | Encounter Summary ---
Author Organization [employer] Address [address] [place] [address] 7t [place] [address] Care Team Providers Care Scrubber System Attendant Name Role Phone Nova Piedra MD Primary Care Provider + Encounter Details Date Type Department Care Team (Latest Contact Info) Description 02/25/2019 Abstract [facility] CONVERSIONS Dental, Provider, DDS Social History Tobacco [...] Care Team (Late st Contact Info) Description 04/20/2025 10:00 AM EDT Office Visit [facility] ADULT DENTAL [address] [place] [address] Connor Khan DDS [address] [place] [address] 04/21/2025 2:00 PM EDT Office Visit [facility] ADULT DENTAL [address] [place] [address] Erlin Orlando [address] [place] [address] 05/05/2025 10:00 AM EDT Office Visit [facility] MEDICINE [address] [place] [address] Nova Piedra MD [address] [place] [address] documented as of this encounter Visit Diagnoses Not on filedocumented in this encounter Care Teams Scrubber System Attendant Relationship Specialty Start Date End Date Nova Piedra MD [address] [place] [phone] PCP - General Family Medicine 02/05/19 documented as of this encounter
--- NOTE | 2025-04-27 | ECG_ITS ---
Test Reason : PREOP Blood Pressure : */* mmHG Vent. Rate : 65 BPM Atrial Rate : 65 BPM P-R Int : 184 ms QRS Dur : 104 ms QT Int : 384 ms P-R-T Axes : 61 29 38 degrees QTcB Int : 399 ms Normal sinus rhythm Normal ECG No previous ECGs available Referred By: Bere Lenz Electronically Signed By: Bull Galindo
[2025-04-27 10:16] VITALS: BP 129/76; PULSE 75; RESP 20; O2SAT 98; BMI 31.1
--- NOTE | 2025-04-27 10:29 | HO.ANESPROP2 ---
HPI - Anesthesia Eval Consult details Narrative: *Cancelled due to pt needing extensive dental work prior to surgery. 64 yr old male for right total hip replacement, scheduled for 05/26/25. s/p hernia repair 01/2025 with GA, LMA 3 Medical clearance with PCP 05/05/25: He is a low risk patient. He's undergoing an intermediate risk procedure. The risk of CV complication according to RCRI is 0.5 which is an average risk. At this time he is optimal condition for planned procedure. ANAMARIA: on CPAP Dental concerns: seeing dentist for crown prep, has communicated this with Dr. Lovelace's office, will get note from dentist. No recent infections. No CP or SOB with minimal walking, limited due to hip pain PMFSH Active Problems Active Problems: All Active Problems (Updated 04/27/25 @ 10:13 by Savita Ty RN) S/P umbilical hernia repair, follow-up exam (Acute) Reducible umbilical hernia (Acute) Osteoarthritis of right hip (Acute) Right groin pain (Acute) Osteoarthritis of right shoulder (Acute) Sacroiliac joint pain (Acute) Osteoarthritis of hips, bilateral (Acute) Right shoulder pain (Acute) Right hip pain (Acute) Lumbosacral spondylosis (Acute) Chronic low back pain (Acute) Lipoma of extremity (Acute) Encounter for screening colonoscopy (Acute) Benign skin lesion of multiple sites (Acute) Dyslipidemia (Acute) Past Medical History Medical History (Updated 04/27/25 @ 10:13 by Savita Ty RN) ANAMARIA (obstructive sleep apnea) Osteoarthritis Hypertension Vitamin D deficiency Back pain Dyslipidemia Family History Family History Mother Blocked artery Father Stroke Heart attack Family history of problems with anesthesia: No Surgical History Surgical History (Updated 04/24/25 @ 10:15 by Savita Ty RN) History of umbilical hernia repair (01/16/25) H/O hand surgery History of excision of lesion (~05/10/22) Status post excision of lipoma Hx of arthroscopy of left knee History of colonoscopy History of Problems with Anesthesia: No Social History Social History Household Members Other:: alone Are you a primary career based intervention coordinator to a significant other at home: No Do you presently have visiting nurse or other home services: No Alcohol intake: current Alcohol intake frequency: 3 or more drinks per day Alcohol type: beer, wine and other Patient Tobacco Use Status: Former Tobacco user Tobacco use type: Cigarette Years Smoked: 40 Use of substances other than those prescribed or required for medical reasons: No Have you been hit, kicked, punched, or otherwise hurt by someone within the past year? If so, by whom?: No Spiritual Healthcare Practices: no Yazdanism Healthcare Practices: no Cultural Healthcare Practices: no Are you DNR?: No Advance Directives: No (cousins are primary contact) Advance Directives on File: No Poor oral hygiene: No (temporary crown left upper & other crowns also) Current occupational status: retired Meds Allergies Allergy/AdvReac Type Severity Reaction Status Date / Time No Known Allergies Allergy Verified 04/21/25 11:13 Home Medications ?Medication ?Instructions ?Recorded ?Confirmed ?Last Taken ?Type cholecalciferol (vitamin D3) 50 50 mcg PO DAILY 10/19/20 04/24/25 Unknown History mcg (2,000 unit) capsule (Vitamin D3) rosuvastatin 20 mg tablet 20 mg PO DAILY 05/10/22 04/24/25 Unknown History lisinopril 2.5 mg tablet 2.5 mg PO DAILY 04/24/24 04/24/25 01/15/25 History multivitamin 1 tab PO DAILY 04/24/25 04/24/25 Unknown History omega-3 fatty acids 1,000 mg 1,000 mg PO DAILY 04/24/25 04/24/25 Unknown History capsule cartilage 40 mg-collagen II-boron 1 tab PO DAILY 04/27/25 04/27/25 Unknown History 5 mg-hyaluronate sod 3.3 mg tablet (Move Free Ultra Triple Action (boron)) Exam Pertinent Lab Results Pertinent Lab Results: 04/27/25 WBC 5.0 RBC 4.89 Hgb 14.6 Hct 44.0 Platelet 267 Laboratory Tests 04/27/25 11:14 WBC 5.0 RBC 4.89 Hgb 14.6 Hct 44.0 Plt Count 267 Sodium 140 Potassium 4.1 BUN 13 Creatinine 0.81 Airway Mallampati Class: IV TM Dist: >3cm Neck ROM: Full Partial: Upper (in process of getting crown left lateral uppers) Loose/Missing/Broken Teeth: No Heart: RRR Lungs: CTAB Assessment and Plan Final Anesthetic Review Family History of Problems with Anesthesia: No History of Problems with Anesthesia: No
[2025-04-27 11:55] LABS: Hematocrit 44.0 % (42.0-52.0); Hemoglobin 14.6 g/dl (14.0-18.0); Mean Corpuscular HGB Conc 33.2 g/dl (31.0-36.0); Mean Corpuscular Hemoglobin 29.9 pg (27.0-33.0); Mean Corpuscular Volume 90.0 fL (80.0-98.0); NRBC Abs Auto 0.000 X10*3/uL (0.0-0.012); NRBC Pct Auto 0.0 /100WBC (0.0-0.2); Platelet Count 267 X10*3/uL (160-400); Red Blood Count 4.89 X10*6/uL (4.60-5.80); White Blood Count 5.0 X10*3/uL (4.8-10.8)
[2025-04-27 12:22] LABS: MRSA Nasal PCR NEGATIVE (Negative); SA Nasal PCR NEGATIVE (Negative)
[2025-04-27 12:34] LABS: Anion Gap 7 (12-20); Blood Urea Nitrogen 13 mg/dL (9-16); Calcium 9.4 mg/dL (8.4-10.2); Carbon Dioxide 30 mmol/L (22-29); Chloride 107 mmol/L (96-108); Creatinine Clr Calc Pharmacy 113.0; Estimated Glomerular Filt Rate > 60; Potassium 4.1 mmol/L (3.3-5.1); Sodium 140 mmol/L (135-145)
--- OUTSIDE RECORDS SUMMARY | 2025-06-30 09:57 | XMS_ITS | Encounter Summary ---
Author Organization [employer] Address [address] [facility] 7t [place] [address] Care Team Providers Care Creative Services Writer Name Role Phone Nova Piedra MD Primary Care Provider + Encounter Details Date Type Department Care Team (Late st Contact Info) Description 02/23/2025 Orders Only [facility] [address] [place] [address] Provider, MD Norris Social History Tobacco Use Types Packs/Day Years [...] Care Team (Late st Contact Info) Description 07/10/2025 9:15 AM EST Office Visit [facility] MEDICINE [address] [place] [address] Izaiah Oquendo MD [address] [place] [address] 07/21/2025 8:00 AM EST Office Visit [facility] ADULT D[facility] [address] [place] [address] Erlin Orlando [address] [place] [address] 10/28/2025 10:15 AM EDT Office Visit [facility] ADULT DENTAL [address] [place] [address] Nolberto Ralph documented as of this encounter Procedures Procedure Name Priority Date/Time Associated Diagnosis Comments LDCT LUNG SCREENING Routine 02/20/2025 1:32 PM EDT documented in this encounter Results * CT Lung Screening Low dose (02/20/2025 1:32 PM EDT) Anatomical Region Laterality Modality Lung Computed Tomogra phy us Historical Provider MD MEDINA CT PROCEDURES Final R esult documented in this encounter Visit Diagnoses Not on filedocumented in this encounter Care Teams Creative Services Writer Relationship Specialty Start Date End Date Nova Piedra MD [address] [place] [phone] PCP - General Family Medicine 02/05/19 documented as of this encounter
--- OUTSIDE RECORDS SUMMARY | 2025-06-30 09:57 | XMS_ITS | Encounter Summary ---
Author Organization [employer] Address [address] [facility] 7t [place] [address] Care Team Providers Care Features Editor Name Role Phone Nova Piedra MD Primary Care Provider + Encounter Details Date Type Department Care Team (Late st Contact Info) Description 01/18/2023 Abstract [facility] MEDICINE [address] [place] [address] [phone] Nova Piedra MD [address] [place] [address] [phone] Social History Tobacco Use Types Packs/Day Years [...] Description 07/10/2025 9:15 AM EST Office Visit [facility] MEDICINE [address] [place] [address] [phone] Izaiah Oquendo MD [address] [place] [address] [phone] 07/21/2025 8:00 AM EST Office Visit [facility] ADULT D[facility] [address] [place] [address] Erlin Orlando [address] [place] [address] 10/28/2025 10:15 AM EDT Office Visit [facility] ADULT DENTAL [address] [place] [address] Nolberto Ralph documented as of this encounter Procedures Procedure Name Priority Date/Time Associated Diagnosis Comments COLONOSCOPY Routine 10/24/2020 11:34 AM EDT documented in this encounter Results * Colonoscopy (10/24/2020 11:34 AM EDT) Colonoscopy Normal Normal Narrative Keturah Coreas - 10/24/2020 11:34 AM EDT Recommended 5 year follow up( [facility]) Historical Provider [facility] Edited Result - Final documented in this encounter Visit Diagnoses Not on filedocumented in this encounter Care Teams Features Editor Relationship Specialty Start Date End Date Nova Piedra MD [address] [place] [phone] PCP - General Family Medicine 02/05/19 documented as of this encounter
--- OUTSIDE RECORDS SUMMARY | 2025-06-30 09:57 | XMS_ITS | Encounter Summary ---
Author Organization [employer] Address [address] [place] [address] 7t [place] [address] Care Team Providers Care Career Coach Name Role Phone Nova Piedra MD Primary Care Provider + Encounter Details Date Type Department Care Team (Latest Contact Info) Description 12/09/2020 Abstract [facility] CONVERSIONS Dental, Provider, DDS Social History Tobacco [...] Description 07/10/2025 9:15 AM EST Office Visit [facility] MEDICINE [address] [place] [phone] Izaiah Oquendo MD [address] [place] [address] 07/21/2025 8:00 AM EST Office Visit [facility] ADULT DENTAL [address] [place] [address] Erlin Orlando [address] [place] [address] 10/28/2025 10:15 AM EDT Office Visit [facility] ADULT DENTAL [address] [place] [address] Nolberto Ralph documented as of this encounter Visit Diagnoses Not on filedocumented in this encounter Care Teams Career Coach Relationship Specialty Start Date End Date Nova Piedra MD [address] [place] [address] PCP - General Family Medicine 02/05/19 documented as of this encounter
--- OUTSIDE RECORDS SUMMARY | 2025-06-30 09:57 | XMS_ITS | Encounter Summary ---
Author Organization [employer] Address [address] [place] [address] 7t [place] [address] Care Team Providers Care Mines Inspector Name Role Phone Nova Piedra MD Primary Care Provider + Encounter Details Date Type Department Care Team (Latest Contact Info) Description 02/25/2019 Abstract [facility] CONVERSIONS Dental, Provider, DDS Social History [...] Description 07/10/2025 9:15 AM EST Office Visit [facility] MEDICINE [address] [place] [address] Izaiah Oquendo MD [address] [place] [address] 07/21/2025 8:00 AM EST Office [facility] ADULT DENTAL [address] [place] [address] Erlin Orlando [address] [place] [address] 10/28/2025 10:15 AM EDT Office [facility] ADULT DENTAL [address] [place] [address] Nolberto Ralph documented as of this encounter Visit Diagnoses Not on filedocumented in this encounter Care Teams Mines Inspector Relationship Specialty Start Date End Date Nova Piedra MD [address] [place] [phone] PCP - General Family Medicine 02/05/19 documented as of this encounter
--- OUTSIDE RECORDS SUMMARY | 2025-06-30 09:57 | XMS_ITS | Clinical Summary ---
Author Organization [employer] Address [address] [place] [address] Care Team Providers Care Cell Feed Department Supervisor Name Role Phone Darell Anderson MD Primary Care Provider + Allergies No known active allergies Medications chlorhexidine (Peridex) 0.12 % solution Place 15 mL into mouth between cheek and gum every 12 (twelve) hours. 06/17/20 19 Active Multiple Vitamins-Minerals (Multivitamin) liquid Active rosuvastatin (Crestor) 20 MG tabletIndications:Pure hypercholesterolemia Take 1 tablet (20 mg) by mouth Once per day. 90 tablet 3 08/04/20 24 Active lisinopril 2.5 MG tablet TAKE ONE TABLET EVERY MORNING 90 tablet 1 10/28/19 25 Active Active Problems Problem Noted Date Diagnosed Date Preoperative examination 05/05/2025 Assessment & Plan (05/05/2025 10:48 AM EDT): 64yo patient with multiple medical conditions here for preop evaluation. Most of her/his medical conditions are stable enough so that she/he can safely undergo planned procedure. He is a low risk patient. He's undergoing an intermediate risk procedure. The risk of CV complication according to RCRI is 0.5 whcih is an average risk. At this time HE IS ON OPTIMAL CONDITION for planned procedure. -Meds adjusted for the day of surgery: Take low-dose lisinopril for hypertension on the morning of the surgery, with a sip of water he can hold all the other medications for the day after surgery. -Call back [facility] should he develops fever, cough, SOB, CP, UTI sxs or any other acute issue Impacted cerumen of both ears 03/07/2025 Assessment & Plan (03/07/2025 9:45 AM EDT): Advised against poking into his ears, he will start Debrox eardrops several times per day and ideally follow-up with RN for ear lavage in 1 week. Unfortunately he has a trip planned for next week, so he will use the eardrops and return to clinic as needed if symptoms are persistent. The patient is here for ear upon returning from his trip Advised to use ear protectors when swimming to prevent swimmers ear Primary osteoarthritis of right hip 11/25/2024 Assessment [...] will reevaluate when he comes back from [facility] Umbilical hernia without obstruction and without gangrene [...] 2013, obtain lung cancer screening results from [facility] Chronic low back pain 02/13/2023 Assessment [...] ANAMARIA on Sleep study 09/29/22, following / [facility] Sleep Medicine, Auto CPAP 8- 20cm [...] HYPERCHOLESTEROLEMIA WRITTEN ON 02/15/2024 12:06 PM BY DARELL ANDERSON MD Advised to restart Crestor due [...] Encounters Date Type Department Care Team Description 06/18/2025 8:00 AM EST Office Visit [facility] [address] [place] [address] Erlin Orlando 06/09/2025 1:00 PM EST Office Visit [facility] [address] [place] [address] Maya Orlandoricio 05/28/2025 10:00 AM EDT Office Visit [facility] [address] [place] [address] Jamel Chawla, DDS 05/21/2025 2:30 PM EDT Office Visit [facility] [address] [place] [address] Maya Orlandoricio 05/18/2025 Travel 05/05/2025 10:00 AM EDT Office Visit [address] [address] Darell Anderson MD Preoperative examination (Primary Dx) 05/05/[address] [address] Darell Anderson MD Pre-op Exam 05/05/[address] [address] Darell Anderson MD EKG results 05/05/2025 Travel 05/04/2025 9:30 AM EDT Office Visit [facility] [address] [place] [address] Erlin Orlando 05/04/[address] [place] [address] Darell Anderson MD Chart Prep 04/29/2025 2:00 PM EDT Office Visit [facility] [address] [place] [address] LoreeJhonatanNolberto Dental calculus (Primary Dx) 04/28/2025 10:00 AM EDT Office Visit [facility] [address] [place] [address] Erlin Orlando 04/27/2025 Orders Only GENERIC EXTERNAL DATA DEPARTMENT Provider, Generic External Data 04/21/2025 2:00 PM EDT Office Visit [facility] [address] [place] [address] Erlin Orlando 04/20/2025 10:00 AM EDT Office Visit [facility] [address] [place] [address] Connor Khan DDS from Last 3 Months Immunizations Immunization Administration [...] Sign Reading Time Taken Comments Blood Pressure 120/76 06/18/2025 8:14 AM EST Pulse 69 06/18/2025 8:14 AM EST Temperature 36.3 C (97.4 F) 05/05/2025 10:12 AM EDT Respiratory Rate 14 05/05/2025 10:12 AM EDT Oxygen Saturation 97% 03/07/2025 9:19 AM EDT Inhaled Oxygen Concentration - - Weight 104 kg (228 lb 9.6 oz) 05/05/2025 10:12 A M EDT Height 177.8 cm (5' 10 ) 05/05/2025 10:12 AM EDT Body Mass Index 32.8 05/05/2025 10:12 AM EDT Plan of Treatment Upcoming Encounters Date Type Department Care Team (Late st Contact Info) Description 07/10/2025 9:15 AM EST Office Visit [facility] [address] [place] [address] Izaiah Oquendo MD [address] [place] [address] 07/21/2025 8:00 AM EST Office Visit [facility] [address] [place] [address] Erlin Orlando [address] [place] [address] 10/28/2025 10:15 AM EDT Office Visit [facility] [address] [place] [address] Nolberto Ralph Health Maintenance Due Date Last Done Comments Anal Pap 1961 CT Colonography 1961 FIT DNA/Cologuard 1961 FIT 1961 FOBT 1961 HIV Screening 1961 Sigmoidoscopy 1961 Alcohol/Substance Use Screening 1973 Hepatitis C Screening 11/14/1979 Hepatitis A Vaccines (1 of 2 - Risk 2-dose series) 1980 Zoster Vaccines (1 of 2) 11/14/2011 Hepatitis B Vaccines (1 of 3 - Risk 3-dose series) 2021 Dental Oral Exam 09/26/2024 03/25/2024, 03/2024, 10/31/2022 Depression Screening 10/29/2024 10/30/2023, 10/30/19 COVID-19 Vaccine ( season) 2025 04/13/2024, 05/09/2022, 02/21/2022, Additional history exists Colonoscopy 10/24/2025 10/24/2020 Colorectal Cancer Screening 10/24/2025 Dental Prophylaxis 10/28/2025 04/29/2025, 0 09/26/2024, 03/25/2024, Additional history exists SDOH Screening 11/25/2025 11/25/2024 Lung Cancer Screening 02/20/2026 02/20/2025 , 02/19/2024, 03/22/2022 Disability Screening 03/07/2026 03/07/2025 Dental X-Ray: Bitewings 04/30/2026 04/29/20, 02/10/2025, 07/29/2024, Additional history exists Tobacco Screening 06/18/2026 06/18/2025 Dental X-Ray: Full Mouth 03/26/2027 03/25/2024 Lipid Panel 03/10/2029 03/10/2024, 07/02/2023, 04/07/2022 DTaP/Tdap/Td Vaccines (3 - Td or Tdap) 10/23/2034 10/23/2024, 04/07/2015, 08/20/2004 RSV Patients and Patients Aged 60 years or older (1 - 1-dose 75+ series) 2036 Pneumococcal Vaccine: 50+ Years Completed 11/28/2024, 11/23/2023 Influenza Vaccine Completed 04/28/2025, , 05/05/2022, Additional history exists HIB Vaccines Aged Out No longer eligi ble based on patient's age to complete this topic HPV Vaccines Aged Out No longer eligi ble based on patient's age to complete this topic IPV Vaccines Aged Out No longer eligi ble based on patient's age to complete this topic Meningococcal B Vaccine Aged Out No l onger eligible based on patient's age to complete [...] Procedure Name Priority Date/Time Associated Diagnosis Comments CASE PRESENTATION, DETAILED AND EXTENSIVE TREATMENT PLANNING Routine 06/18/2025 8:00 AM EST 12 CROWN PREP Routine 06/18/2025 8:00 AM EST 10 CROWN PREP Routine 06/18/2025 8:00 AM EST 11 CROWN PREP Routine 06/18/2025 8:00 AM EST CASE PRESENTATION, DETAILED AND EXTENSIVE TREATMENT PLANNING Routine 06/09/2025 1:00 PM EST 10 LIMITED ORAL EVALUATION - PROBLEM FOCUSED Routine 06/09/2025 1:00 PM EST RE-EVAL - POST-OP OFFICE VISIT Routine 05/28/2025 10:00 AM EDT NO CHARGE PROCEDURE Routine 05/21/2025 2 :30 PM EDT CASE PRESENTATION, DETAILED AND EXTENSIVE TREATMENT PLANNING Routine 05/04/2025 9:30 AM EDT CONSULTATION - DIAGNOSTIC SERVICE PROVIDED BY DENTIST OR PHYSICIAN OTHER THAN REQUESTING DENTIST OR PHYSICIAN Routine 05/04/2025 9:30 AM EDT INTRAORAL - PERIAPICAL EACH ADDITIONAL RADIOGRAPHIC IMAGE Routine 04/29/2025 2:00 PM EDT INTRAORAL - PERIAPICAL FIRST RADIOGRAPHIC IMAGE Routine 04/29/2025 2:00 PM EDT BITEWINGS - 4 RADIOGRAPHIC IMAGES Routine 04/29/2025 2:00 PM EDT ORAL HYGIENE INSTRUCTIONS Routine 04/29/2025 2:00 PM EDT CASE PRESENTATION, DETAILED AND EXTENSIVE TREATMENT PLANNING Routine 04/29/2025 2:00 PM EDT PROPHYLAXIS - ADULT Routine 04/29/2025 2 :00 PM EDT CASE PRESENTATION, DETAILED AND EXTENSIVE TREATMENT PLANNING Routine 04/28/2025 10:00 AM EDT 11 PREFABRICATED POST AND CORE IN ADDITION TO CROWN Routine 04/28/2025 10:00 AM EDT 8 ROOT CANAL Routine 04/28/2025 12:00 AM EDT BASIC METABOLIC PANEL Routine 04/27/2025 11:14 AM EDT CBC Routine 04/27/2025 11:14 AM EDT MRSA NASAL SCREEN Routine 04/27/2025 10: 30 AM EDT CASE PRESENTATION, DETAILED AND EXTENSIVE TREATMENT PLANNING Routine 04/21/2025 2:00 PM EDT CROWN PREP Routine 04/21/2025 2:00 PM EDT 11 ENDODONTIC THERAPY, ANTERIOR TOOTH Routine 04/20/2025 10:00 AM EDT CASE PRESENTATION, DETAILED AND EXTENSIVE TREATMENT PLANNING Routine 04/20/2025 10:00 AM EDT LDCT LUNG SCREENING Routine 02/20/2025 1 :32 PM EDT INTRAORAL - COMPLETE SERIES OF RADIOGRAPHIC IMAGES Routine 03/25/2024 8:00 AM EDT PERIODIC ORAL EVALUATION - ESTABLISHED PATIENT Routine 03/25/2024 8:00 AM EDT LIPID PANEL WITH REFLEX TO DIRECT LDL Routine 03/10/2024 10:05 AM EDT Primary hypertension Mixed hyperlipidemia HM COLONOSCOPY Routine 10/24/2020 11:34 AM EDT from Last 3 Months or Most Recently Relevant to Health Maintenance Results * CBC (04/27/2025 11:14 AM EDT) White Blood Count 5.0 4.8 - 10.8 X10*3/uL [facility] Red Blood Count 4.89 4.60 - 5.80 X10*6/uL [facility] Hemoglobin 14.6 14.0 - 18.0 g/dl [facility] Hematocrit 44.0 42.0 - 52.0 % [facility] Mean Corpuscular Volume 90.0 80.0 - 98.0 fL [facility] Mean Corpuscular Hemoglobin 29.9 27.0 - 33.0 pg [facility] Mean Corpuscular HGB Conc 33.2 31.0 - 36.0 g/dl [facility] Red Cell Distribution Width 13.9 11.0 - 16.0 % [facility] Platelet Count 267 160 - 400 X10*3/uL [facility] Mean Platelet Volume 9.6 9.4 - 12.4 fL [facility] NRBC Pct Auto 0.0 0.0 - 0.2 /100WBC [facility] NRBC Abs Auto 0.000 0.0 - 0.012 X10*3/uL [facility] 04/27/2025 11:1 4 AM EDT 04/27/2025 11:14 AM EDT us Generic External Data Provider LAB BLOOD ORDERAB LES Final Result [facility] [address] [place], [place] [phone] * (ABNORMAL) Basic Metabolic Panel (04/27/2025 11:14 AM EDT) Sodium 140 135 - 145 mmol/L [facility] Potassium 4.1 3.3 - 5.1 mmol/L [facility] Chloride 107 96 - 108 mmol/L [facility] Carbon Dioxide 30(H) 22 - 29 mmol/L [facility] Anion Gap 7(L) 12 - 20 [facility] Urea Nitrogen (BUN) 13 9 - 16 mg/dL [facility] Creatinine, Serum 0.81 0.5 - 1.4 mg/dL [facility] Creatinine Clr Calc Pharmacy 113.0 [facility] Comment:eGFR (calculated fro m the MDRD study equation) and eCrCl(calculated from the Cockcroft-Gault equation) are based ondifferent parameters and may not yield comparable results.If eCrCl result is absurd, please check patient'sheight/weight. Estimated Glomerular Filt Rate >60 [facility] Comment:Chronic Kidney Disea se: Estimated GFR < 60 mL/min/[id number] Kidney Disease: Estimated GFR < 15 mL/min/1.73m2 Glucose 88 60 - 115 mg/dL [facility] Calcium 9.4 8.4 - 10.2 mg/dL [facility] 04/27/2025 11:1 4 AM EDT 04/27/2025 11:14 AM EDT us Generic External Data Provider LAB BLOOD ORDERAB LES Final Result Performing Organization Address [facility] Co de Phone Number [facility] [address] [place] [phone] * MRSA Nasal Screen (04/27/2025 10:30 AM EDT) MRSA Nasal PCR NEGATIVE Negative [facility] SA Nasal PCR NEGATIVE Negative [facility] MRSA Interpretation SEE NOTE [facility] Comment:MRSA target DNA not detected; SA target DNA not detected.A MRSA NEGATIVE, SA NEGATIVE test result does not precludeMRSA or SA nasal colonization. 04/27/2025 10:3 0 AM EDT 04/27/2025 11:01 AM EDT us Generic External Data Provider LAB MICROBIOLOGY - GENERAL ORDERABLES Final Result Performing Organization Address [facility] Co de Phone Number [facility] [address] [place] [phone] * CT Lung Screening Low dose (02/20/2025 1:32 PM EDT) Anatomical Region Laterality Modality Lung Computed Tomogra phy Historical Provider IMG CT PROCEDURES Final R esult * (ABNORMAL) Lipid Panel with Reflex to Direct LDL (03/10/2024 10:05 AM EDT) Triglycerides 165(H) <150 mg/dL [facility] Comment:Desirable Triglyceri de: less than 150 mg/dLBorderline High Triglyceride 150-199 mg/dLHigh Triglyceride: 200-499 mg/dLVery High Triglyceride: greater than or equal to 5OO mg/dL Cholesterol 183 <200 mg/dL [facility] Comment:Desirable Cholestero l: less than 200 mg/dLBorderline High Cholesterol: 200-239 mg/dLHigh Cholesterol: greater than 239 mg/dL LDL Cholesterol Calculated 95 <100 mg/dL [facility] Comment:Desirable LDL: less than 100 mg/dLNear Optimal/Above Optimal LDL: 110- 129 mg/dLBorderline High LDL: 130-159 mg/dLHigh LDL: 160-189 mg/dLVery High LDL: greater than or equal to 190 mg/dL HDL Cholesterol 55 >40 mg/dL [facility] Comment:Desirable HDL: great er than 40 mg/dL Note: This HDL assay may give artificially low results in patients with liver disease. Blood 03/10/2024 10:0 5 AM EDT 03/10/2024 11:16 AM EDT Darell Anderson MD LAB BLOOD ORDERABLES Fin al Result [facility] [address] [place] [phone] * Colonoscopy (10/24/2020 11:34 AM EDT) Colonoscopy Normal Normal Narrative Keturah Coreas - 10/24/2020 11:34 AM EDT Recommended 5 year follow up( [facility]) Historical Provider HEALTH MAINTENANCE Edited Result - Final from Last 3 Months or Most Recently Relevant to Health Maintenance Insurance [facility] Care Teams Cell Feed Department Supervisor Relationship Specialty Start Date End Date Darell Anderson MD [address] [place] [phone] PCP - General Family Medicine 02/05/19
--- OUTSIDE RECORDS SUMMARY | 2025-06-30 09:57 | XMS_ITS | Encounter Summary ---
Author Organization [employer] Address [address] [facility] [address] [place] [address] Care Team Providers Care Emergency Preparedness Coordinator Name Role Phone Nova Piedra MD Primary Care Provider + Reason for Visit * Reason Onset Date Comments emergency dental no insurance 07/29/2024 Encounter Details Date Type Department Care Team (Late st Contact Info) Description 07/29/[address] [facility] [address] [place], [place] [phone] Jamel Chawla DDS [address] [place], [place] [phone] emergency dental no insurance Social History Tobacco [...] in as of 8:20 to speak with [facility] for insurance and/or SFS assistance. documented in this encounter Plan of Treatment Upcoming Encounters Date Type Department Care Team (Late st Contact Info) Description 07/10/2025 9:15 AM EST Office Visit [facility] [address] [place] [address] Izaiah Oquendo MD [address] [place] [address] 07/21/2025 8:00 AM EST Office Visit [facility] [address] [place] [address] Erlin Orlando [address] [place] [address] 10/28/2025 10:15 AM EDT Office Visit [facility] [address] [place] [address] Nolberto Ralph documented as of this encounter Visit Diagnoses Not on filedocumented in this encounter Care Teams Emergency Preparedness Coordinator Relationship Specialty Start Date End Date Nova Piedra MD [address] [place] [phone] PCP - General Family Medicine 02/05/19 documented as of this encounter
== END 2025-04-27 00:01 | disposition home or self-care (01) ==
LOC: HO.PAT
PROVIDERS: Nurse Practitioner; Physician Assistant; PCP Internal Medicine; Visit Provider Orthopaedic Surgery
DX: Z01.818 Encounter for other preprocedural examination (principal)
CPT/HCPCS: 36415; 80048; 85027; 87640; 87641; 93005

== ENCOUNTER → 2025-04-27 11:18 | Outpatient (BNV) | payer OTHER, SELFPAY | PROVIDERS: PCP Internal Medicine; Visit Provider Internal Medicine Cardiovascular Disease | DX: Z01.810 Encounter for preprocedural cardiovascular examination (principal) | CPT/HCPCS: 93010 ==